=== PATIENT | female | born 1985 | race Caucasian/White ===

== ENCOUNTER 2017-01-29 13:22 | Emergency (ER) | payer MEDICARE, MEDICAID ==
[~2017-01-29] VITALS: Ht 157.5 cm; Wt 45.4 kg
--- OUTSIDE RECORDS SUMMARY | 2017-01-29 13:31 | XMS REPORT | Clinical Summary ---
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 Conditions or Problems Problem Name Problem Code Onset Date Status Entry Date Provider Comment Standard Description Annotate Dental pain 525.9 Active Rojas Turner MD Unspecified disorder of the teeth and supporting structures Cigarette smoker 305.1 Active Jakub Ramirez MD Tobacco use disorder ADHD 314.01 Active Jakub Ramirez MD Attention deficit disorder of childhood with hyperactivity Insect bite 919.4 Resolved Jakub Ramirez MD Insect bite, nonvenomous, of other, multiple, and unspecified sites, without mention of infection Bipolar disorder 296.80 Active Jakub Ramirez MD Bipolar disorder, unspecified Other obsessive-compulsive disorder Active Jakub Ramirez MD Hemorrhoids, external 455.3 Active Jakub Ramirez MD External hemorrhoids without mention of complication Seizure disorder 780.39 Active Jakub Ramirez MD Other convulsions Dyspnea 786.09 Active Jakub Ramirez MD Other dyspnea and respiratory abnormality Chest wall pain 786.52 Active Jakub Ramirez MD Painful respiration Upper respiratory infection 465.9 Active Jakub Ramirez MD Acute upper respiratory infections of unspecified site Insect bite ICD-919.4 Inactive Jakub Ramirez MD Medication List Medication Instructions Start Date Stop Date Generic Name NDC Status Provider Patient Instruction AIRBORNE ORAL CHEW 1 a day MULTIPLE VITAMINS- MINERALS 24686031728 No Longer Active Jakub Ramirez MD Active LORATADINE 10 MG TABS 1 daily as needed for allergies LORATADINE 92637614279 No Longer Active Jakub Ramirez MD Active BENADRYL ITCH STOPPING 2 % EXT GEL apply four times a day as needed for itching DIPHENHYDRAMINE HCL 72104928591 No Longer Active Jakub Ramirez MD Active ANUSOL-HC 2.5 % RECTAL CREA apply twice a day to hemorrhoid as needed HYDROCORTISONE 71848332831 No Longer Active Jakub Ramirez MD Active VENTOLIN HFA 108 (90 BASE) MCG/ACT AERS 2 puffs four times a day as needed for cough or wheezing ALBUTEROL SULFATE 04339449569 Active Jakub Ramirez MD Active HYDROXYZINE HCL 10 MG ORAL TABS 1 to 2 three times a day as needed for itching HYDROXYZINE HCL 79704871499 No Longer Active Leah Bassett LPN Active CLARITIN 10 MG TAB 1 tablet by mouth daily as needed for allergies LORATADINE 44162833736 Active Leah Bassett LPN Active STRATTERA 10 MG CAPS 1 daily ATOMOXETINE HCL 89568229458 No Longer Active Jakub Ramirez MD Active IBUPROFEN 800 MG TABS 1 three times a day as needed for headache IBUPROFEN 11222092817 Active Jakub Ramirez MD Active HYDROCODONE-ACETAMINOPHEN 5-325 MG TABS 1 tab by mouth every 8 hours as needed for pain HYDROCODONE-ACETAMINOPHEN 73590535176 No Longer Active Jakub Ramirez MD Active AQUAPHILIC EXT OINT once daily as needed EMOLLIENT 53403873880 Active Jakub Ramirez MD Active ZADITOR 0.025 % OPHTH SOLN once or twice daily as needed KETOTIFEN FUMARATE 98488967679 Active Jakub Ramirez MD Active VYVANSE 20 MG CAPS twice daily LISDEXAMFETAMINE DIMESYLATE 44253781759 Active Jakub Ramirez MD Active XANAX 0.25 MG TABS take one as needed twice daily ALPRAZOLAM 91342515951 Active Jakub Ramirez MD Active ABILIFY 2 MG ORAL TABS once daily ARIPIPRAZOLE 30557823019 Active Jakub Ramirez MD Active AMOXICILLIN 875 MG TABS 1 tab by mouth twice daily AMOXICILLIN 05187797894 No Longer Active Rojas Turner MD Active HYDROCODONE-ACETAMINOPHEN 5-325 MG TABS 1 tab by mouth every 8 hours as needed for pain HYDROCODONE-ACETAMINOPHEN 5-325 MG TABS 499137 HYDROCODONE-ACETAMINOPHEN Inactive STRATTERA 10 MG CAPS 1 daily STRATTERA 10 MG CAPS 798439 ATOMOXETINE HCL Inactive HYDROXYZINE HCL 10 MG ORAL TABS 1 to 2 three times a day as needed for itching HYDROXYZINE HCL 10 MG ORAL TABS 088474 HYDROXYZINE HCL Inactive ANUSOL-HC 2.5 % RECTAL CREA apply twice a day to hemorrhoid as needed ANUSOL-HC 2.5 % RECTAL CREA 403525 HYDROCORTISONE Inactive BENADRYL ITCH STOPPING 2 % EXT GEL apply four times a day as needed for itching BENADRYL ITCH STOPPING 2 % EXT GEL DIPHENHYDRAMINE HCL Inactive LORATADINE 10 MG TABS 1 daily as needed for allergies LORATADINE 10 MG TABS 351449 LORATADINE Inactive AIRBORNE ORAL CHEW 1 a day AIRBORNE ORAL CHEW MULTIPLE VITAMINS-MINERALS Inactive AMOXICILLIN 875 MG TABS 1 tab by mouth twice daily AMOXICILLIN 875 MG TABS 255566 AMOXICILLIN Inactive Vital Signs Date Name Value Unit Range Description blood pressure, diastolic 67 mm[Hg] BP hoff blood pressure, systolic 109 mm[Hg] BP sys pulse rate E&M 89 /min Heart rate temperature E&M 99.3 [degF] Body temperature weight E&M 103.5 [lb_av] Weight Measured blood pressure, diastolic 79 mm[Hg] BP hoff blood pressure, systolic 118 mm[Hg] BP sys pulse rate E&M 80 /min Heart rate temperature E&M 98.8 [degF] Body temperature weight E&M 103.5 [lb_av] Weight Measured blood pressure, diastolic 69 mm[Hg] BP hoff blood pressure, systolic 94 mm[Hg] BP sys height E&M 61 [in_us] Bdy height pulse rate E&M 94 /min Heart rate temperature E&M 98.4 [degF] Body temperature weight E&M 100 [lb_av] Weight Measured blood pressure, diastolic 72 mm[Hg] BP hoff blood pressure, systolic 114 mm[Hg] BP sys pulse rate E&M 114 /min Heart rate temperature E&M 97.6 [degF] Body temperature weight E&M 102 [lb_av] Weight Measured Encounters Code Encounter Date Provider Facility CPT-27549 Level 3 Est. Patient 12:51:13 CDT Jakub Ramirez MD [facility] CPT-77110 Level 3 Est. Patient 14:46:53 CDT Jakub Ramirez MD [facility] CPT-78071 Level 3 Est. Patient 12:51:53 CDT Jakub Ramirez MD [facility] CPT-29085 Level 3 Est. Patient 16:54:18 CDT Rojas Turner MD [facility] -[facility]
--- OUTSIDE RECORDS SUMMARY | 2017-01-29 13:31 | XMS REPORT | Clinical Summary ---
Author Author Admin, Savita Organization [facility] Address Unknown Phone Unavailable Allergies, Adverse Reactions, Alerts Allergy Name Reaction Description Start Date Severity Status Provider No Known Allergies Leahedmundo Bassett [employer]PER Conditions or Problems Problem Name Problem Code [...] CHEW 1 a day MULTIPLE VITAMINS- MINERALS 30976550031 No Longer Active Jakub Ramirez MD Active LORATADINE 10 MG TABS 1 daily as needed for allergies LORATADINE 46932315320 No Longer Active Jakub Ramirez MD Active BENADRYL ITCH STOPPING 2 % EXT GEL apply four times a day as needed for itching DIPHENHYDRAMINE HCL 62080025639 No Longer Active Jakub Ramirez MD Active ANUSOL-HC 2.5 % RECTAL CREA apply twice a day to hemorrhoid as needed HYDROCORTISONE 20458103640 No Longer Active Jakub Ramirez MD Active VENTOLIN HFA 108 (90 BASE) MCG/ACT AERS 2 puffs four times a day as needed for cough or wheezing ALBUTEROL SULFATE 88526116909 Active Jakub Ramirez MD Active HYDROXYZINE HCL 10 MG ORAL TABS 1 to 2 three times a day as needed for itching HYDROXYZINE HCL 59455472074 No Longer Active Leah Bassett LPN Active CLARITIN 10 MG TAB 1 tablet by mouth daily as needed for allergies LORATADINE 63320618990 Active Leah Bassett LPN Active STRATTERA 10 MG CAPS 1 daily ATOMOXETINE HCL 26854612927 No Longer Active Jakub Ramirez MD Active IBUPROFEN 800 MG TABS 1 three times a day as needed for headache IBUPROFEN 27605950244 Active Jakub Ramirez MD Active HYDROCODONE-ACETAMINOPHEN 5-325 MG TABS 1 tab by mouth every 8 hours as needed for pain HYDROCODONE-ACETAMINOPHEN 12467604318 No Longer Active Jakub Ramirez MD Active AQUAPHILIC EXT OINT once daily as needed EMOLLIENT 57032489288 Active Jakub Ramirez MD Active ZADITOR 0.025 % OPHTH SOLN once or twice daily as needed KETOTIFEN FUMARATE 80825846277 Active Jakub Ramirez MD Active VYVANSE 20 MG CAPS twice daily LISDEXAMFETAMINE DIMESYLATE 26595827987 Active Jakub Ramirez MD Active XANAX 0.25 MG TABS take one as needed twice daily ALPRAZOLAM 97692637517 Active Jakub Ramirez MD Active ABILIFY 2 MG ORAL TABS once daily ARIPIPRAZOLE 86574082048 Active Jakub Ramirez MD Active AMOXICILLIN 875 MG TABS 1 tab by mouth twice daily AMOXICILLIN 76734566600 No Longer Active Rojas Turner MD Active HYDROCODONE-ACETAMINOPHEN 5-325 MG TABS 1 tab by mouth every 8 hours as needed for pain HYDROCODONE-ACETAMINOPHEN 5-325 MG TABS 840902 HYDROCODONE-ACETAMINOPHEN Inactive STRATTERA 10 MG CAPS 1 daily STRATTERA 10 MG CAPS 174810 ATOMOXETINE HCL Inactive HYDROXYZINE HCL 10 MG ORAL TABS 1 to 2 three times a day as needed for itching HYDROXYZINE HCL 10 MG ORAL TABS 878695 HYDROXYZINE HCL Inactive ANUSOL-HC 2.5 % RECTAL CREA apply twice a day to hemorrhoid as needed ANUSOL-HC 2.5 % RECTAL CREA 280785 HYDROCORTISONE Inactive BENADRYL ITCH STOPPING 2 % EXT GEL apply four times a day as needed for itching BENADRYL ITCH STOPPING 2 % EXT GEL DIPHENHYDRAMINE HCL Inactive LORATADINE 10 MG TABS 1 daily as needed for allergies LORATADINE 10 MG TABS 445850 LORATADINE Inactive AIRBORNE ORAL CHEW 1 a day AIRBORNE ORAL CHEW MULTIPLE VITAMINS-MINERALS Inactive AMOXICILLIN 875 MG TABS 1 tab by mouth twice daily AMOXICILLIN 875 MG TABS 741467 AMOXICILLIN Inactive Vital Signs Date Name Value [...] temperature weight E&M 102 [lb_av] Weight Measured Diagnostic Results Date Name Value Unit Range Description Lab Report: RapidStrep Rflx/Cx, MARIAM INFLUENZA A/B - Lab Microbial identification kit, rapid strep method Negative Negative Lab Report: RapidStrep Rflx/Cx, MARIAM INFLUENZA A/B - Toxicology rapid flu test Negative Negative;Positive Encounters Code Encounter Date Provider Facility CPT-75884 Level 3 Est. Patient 12:51:13 CDT Jakub Ramirez MD [facility] CPT-72475 Level 3 Est. Patient 14:46:53 CDT Jakub Ramirez MD [facility] CPT-00642 Level 3 Est. Patient 12:51:53 CDT Jakub Ramirez MD [facility] CPT-94628 Level 3 Est. Patient 16:54:18 CDT Rojas Turner MD [facility] -[facility]
--- OUTSIDE RECORDS SUMMARY | 2017-01-29 13:31 | XMS REPORT | Clinical Summary ---
Author Author Admin, STANISLAV Organization [facility] Address Unknown Phone Unavailable Allergies, Adverse Reactions, Alerts Allergy Name Reaction Description Start Date Severity Status Provider No Known Allergies Deidra Prieto SANCHEZ Conditions or Problems Problem Name Problem Code [...] 786.52 Active Jakub Ramirez MD Painful respiration Insect bite ICD-919.4 Inactive Jakub Ramirez MD Medication List Medication Instructions Start Date Stop Date Generic Name NDC Status Provider Patient Instruction BENADRYL ITCH STOPPING 2 % EXT GEL apply four times a day as needed for itching DIPHENHYDRAMINE HCL 65665599835 Active Jakub Ramirez MD Active LORATADINE 10 MG TABS 1 daily as needed for allergies LORATADINE 25865186715 Active Jakub Ramirez MD Active AIRBORNE ORAL CHEW 1 a day MULTIPLE VITAMINS-MINERALS 08764954231 Active Jakub Ramirez MD Active VENTOLIN HFA 108 (90 BASE) MCG/ACT AERS 2 puffs four times a day as needed for cough or wheezing ALBUTEROL SULFATE 84132302744 Active Jakub Ramirez MD Active HYDROXYZINE HCL 10 MG ORAL TABS 1 to 2 three times a day as needed for itching HYDROXYZINE HCL 78052236898 No Longer Active Leah Bassett LPN Active CLARITIN 10 MG TAB 1 tablet by mouth daily as needed for allergies LORATADINE 03194820322 Active Leah Bassett LPN Active STRATTERA 10 MG CAPS 1 daily ATOMOXETINE HCL 05554029631 No Longer Active Jakub Ramirez MD Active ANUSOL-HC 2.5 % RECTAL CREA apply twice a day to hemorrhoid as needed HYDROCORTISONE 30650731761 Active Jakub Ramirez MD Active IBUPROFEN 800 MG TABS 1 three times a day as needed for headache IBUPROFEN 76488115569 Active Jakub Ramirez MD Active HYDROCODONE-ACETAMINOPHEN 5-325 MG TABS 1 tab by mouth every 8 hours as needed for pain HYDROCODONE-ACETAMINOPHEN 66500392859 No Longer Active Jakub Ramirez MD Active AQUAPHILIC EXT OINT once daily as needed EMOLLIENT 72624042205 Active Jakub Ramirez MD Active ZADITOR 0.025 % OPHTH SOLN once or twice daily as needed KETOTIFEN FUMARATE 11246018311 Active Jakub Ramirze MD Active VYVANSE 20 MG CAPS twice daily LISDEXAMFETAMINE DIMESYLATE 27550381607 Active Jakub Ramirez MD Active XANAX 0.25 MG TABS take one as needed twice daily ALPRAZOLAM 31094569602 Active Jakub Ramirez MD Active ABILIFY 2 MG ORAL TABS once daily ARIPIPRAZOLE 77248365753 Active Jakub Ramirez MD Active AMOXICILLIN 875 MG TABS 1 tab by mouth twice daily AMOXICILLIN 71570859158 No Longer Active Rojas Turner MD Active HYDROCODONE-ACETAMINOPHEN 5-325 MG TABS 1 tab by mouth every 8 hours as needed for pain HYDROCODONE-ACETAMINOPHEN 5-325 MG TABS 320937 HYDROCODONE-ACETAMINOPHEN Inactive STRATTERA 10 MG CAPS 1 daily STRATTERA 10 MG CAPS 277428 ATOMOXETINE HCL Inactive HYDROXYZINE HCL 10 MG ORAL TABS 1 to 2 three times a day as needed for itching HYDROXYZINE HCL 10 MG ORAL TABS 062308 HYDROXYZINE HCL Inactive AMOXICILLIN 875 MG TABS 1 tab by mouth twice daily AMOXICILLIN 875 MG TABS 976488 AMOXICILLIN Inactive Vital Signs Date Name Value Unit Range Description blood pressure, diastolic 79 mm[Hg] BP hoff [...] Measured Encounters Code Encounter Date Provider Facility CPT-97523 Level 3 Est. Patient 14:46:53 CDT Jakub Ramirez MD [facility] CPT-15919 Level 3 Est. Patient 12:51:53 CDT Jakub Ramirez MD [facility] CPT-96381 Level 3 Est. Patient 16:54:18 CDT Rojas Turner MD [facility] -[facility]
--- OUTSIDE RECORDS SUMMARY | 2017-01-29 13:31 | XMS REPORT | Clinical Summary ---
Author Author Admin, E Organization [facility] Address Unknown Phone Unavailable Allergies, Adverse Reactions, Alerts Allergy Name Reaction Description Start Date Severity Status Provider No Known Allergies Leah Bassett DANIEL Conditions or Problems Problem Name Problem Code [...] Ramirez MD Other dyspnea and respiratory abnormality Insect bite ICD-919.4 Inactive Jakub Ramirez MD Medication List Medication Instructions Start Date Stop Date Generic Name NDC Status Provider Patient Instruction VENTOLIN HFA 108 (90 BASE) MCG/ACT AERS 2 puffs four times a day as needed for cough or wheezing ALBUTEROL SULFATE 05777870715 Active Jakub Ramirez MD Active HYDROXYZINE HCL 10 MG ORAL TABS 1 to 2 three times a day as needed for itching HYDROXYZINE HCL 97951182577 No Longer Active Leah Bassett LPN Active CLARITIN 10 MG TAB 1 tablet by mouth daily as needed for allergies LORATADINE 38590012589 Active Leah Bassett LPN Active STRATTERA 10 MG CAPS 1 daily ATOMOXETINE HCL 08752515655 No Longer Active Jakub Ramirez MD Active ANUSOL-HC 2.5 % RECTAL CREA apply twice a day to hemorrhoid as needed HYDROCORTISONE 28234402222 Active Jakub Ramirez MD Active IBUPROFEN 800 MG TABS 1 three times a day as needed for headache IBUPROFEN 09902399242 Active Jakub Ramirez MD Active HYDROCODONE-ACETAMINOPHEN 5-325 MG TABS 1 tab by mouth every 8 hours as needed for pain HYDROCODONE-ACETAMINOPHEN 51439610140 No Longer Active Jakub Ramirez MD Active AQUAPHILIC EXT OINT once daily as needed EMOLLIENT 70317662620 Active Jakub Ramirez MD Active ZADITOR 0.025 % OPHTH SOLN once or twice daily as needed KETOTIFEN FUMARATE 83484468913 Active Jakub Ramirez MD Active VYVANSE 20 MG CAPS twice daily LISDEXAMFETAMINE DIMESYLATE 78478385552 Active Jakub Ramirez MD Active XANAX 0.25 MG TABS take one as needed twice daily ALPRAZOLAM 94602348410 Active Jakub Rmairez MD Active ABILIFY 2 MG ORAL TABS once daily ARIPIPRAZOLE 04937146986 Active Jakub Ramirez MD Active AMOXICILLIN 875 MG TABS 1 tab by mouth twice daily AMOXICILLIN 05134794746 No Longer Active Rojas Turner MD Active HYDROCODONE-ACETAMINOPHEN 5-325 MG TABS 1 tab by mouth every 8 hours as needed for pain HYDROCODONE-ACETAMINOPHEN 5-325 MG TABS 105344 HYDROCODONE-ACETAMINOPHEN Inactive STRATTERA 10 MG CAPS 1 daily STRATTERA 10 MG CAPS ATOMOXETINE HCL Inactive HYDROXYZINE HCL 10 MG ORAL TABS 1 to 2 three times a day as needed for itching HYDROXYZINE HCL 10 MG ORAL TABS 657346 HYDROXYZINE HCL Inactive AMOXICILLIN 875 MG TABS 1 tab by mouth twice daily AMOXICILLIN 875 MG TABS 324630 AMOXICILLIN Inactive Vital Signs Date Name Value Unit Range Description blood pressure, diastolic - 8462-4 69 mm[Hg] BP hoff blood pressure, systolic - 8480-6 94 mm[Hg] BP sys height E&M - 8302-2 61 [in_us] Bdy height pulse rate E&M - 8867-4 94 /min Heart rate temperature E&M 98.4 [degF] Body temperature weight E&M - 3141-9 100 [lb_av] Weight Measured blood pressure, diastolic - 8462-4 72 mm[Hg] BP hoff blood pressure, systolic - 8480-6 114 mm[Hg] BP sys pulse rate E&M - 8867-4 114 /min Heart rate temperature E&M 97.6 [degF] Body temperature weight E&M - 3141-9 102 [lb_av] Weight Measured Encounters Code Encounter Date Provider Facility CPT-68438 Level 3 Est. Patient 12:51:53 CDT Jakub Ramirez MD [facility] CPT-17419 Level 3 Est. Patient 16:54:18 CDT Rojas Turner MD [facility]
--- OUTSIDE RECORDS SUMMARY | 2017-01-29 13:32 | XMS REPORT | Clinical Summary ---
Author Author Admin, STANISLAV Organization 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 Problem Name Problem Code [...] CHEW 1 a day MULTIPLE VITAMINS- MINERALS 30297267564 No Longer Active Jakub Ramirez MD Active LORATADINE 10 MG TABS 1 daily as needed for allergies LORATADINE 18811168559 No Longer Active Jakub Ramirez MD Active BENADRYL ITCH STOPPING 2 % EXT GEL apply four times a day as needed for itching DIPHENHYDRAMINE HCL 28254312787 No Longer Active Jakub Ramierz MD Active ANUSOL-HC 2.5 % RECTAL CREA apply twice a day to hemorrhoid as needed HYDROCORTISONE 42359480926 No Longer Active Jakub Ramirez MD Active VENTOLIN HFA 108 (90 BASE) MCG/ACT AERS 2 puffs four times a day as needed for cough or wheezing ALBUTEROL SULFATE 63824639982 Active Jakub Ramirez MD Active HYDROXYZINE HCL 10 MG ORAL TABS 1 to 2 three times a day as needed for itching HYDROXYZINE HCL 63279487211 No Longer Active Leah Bassett LPN Active CLARITIN 10 MG TAB 1 tablet by mouth daily as needed for allergies LORATADINE 04067427361 Active Leah Bassett LPN Active STRATTERA 10 MG CAPS 1 daily ATOMOXETINE HCL 95064956020 No Longer Active Jakub Ramirez MD Active IBUPROFEN 800 MG TABS 1 three times a day as needed for headache IBUPROFEN 46514438420 Active Jakub Ramirez MD Active HYDROCODONE-ACETAMINOPHEN 5-325 MG TABS 1 tab by mouth every 8 hours as needed for pain HYDROCODONE-ACETAMINOPHEN 32886609963 No Longer Active Jakub Ramirez MD Active AQUAPHILIC EXT OINT once daily as needed EMOLLIENT 55496245905 Active Jakub Ramirez MD Active ZADITOR 0.025 % OPHTH SOLN once or twice daily as needed KETOTIFEN FUMARATE 16844835379 Active Jakub Ramirez MD Active VYVANSE 20 MG CAPS twice daily LISDEXAMFETAMINE DIMESYLATE 17639866848 Active Jakub Ramirez MD Active XANAX 0.25 MG TABS take one as needed twice daily ALPRAZOLAM 77310393058 Active Jakub Ramirez MD Active ABILIFY 2 MG ORAL TABS once daily ARIPIPRAZOLE 65920152614 Active Jakub Ramirez MD Active AMOXICILLIN 875 MG TABS 1 tab by mouth twice daily AMOXICILLIN 96759546033 No Longer Active Rojas Turner MD Active HYDROCODONE-ACETAMINOPHEN 5-325 MG TABS 1 tab by mouth every 8 hours as needed for pain HYDROCODONE-ACETAMINOPHEN 5-325 MG TABS 201780 HYDROCODONE-ACETAMINOPHEN Inactive STRATTERA 10 MG CAPS 1 daily STRATTERA 10 MG CAPS 575665 ATOMOXETINE HCL Inactive HYDROXYZINE HCL 10 MG ORAL TABS 1 to 2 three times a day as needed for itching HYDROXYZINE HCL 10 MG ORAL TABS 842693 HYDROXYZINE HCL Inactive ANUSOL-HC 2.5 % RECTAL CREA apply twice a day to hemorrhoid as needed ANUSOL-HC 2.5 % RECTAL CREA 581867 HYDROCORTISONE Inactive BENADRYL ITCH STOPPING 2 % EXT GEL apply four times a day as needed for itching BENADRYL ITCH STOPPING 2 % EXT GEL DIPHENHYDRAMINE HCL Inactive LORATADINE 10 MG TABS 1 daily as needed for allergies LORATADINE 10 MG TABS 282178 LORATADINE Inactive AIRBORNE ORAL CHEW 1 a day AIRBORNE ORAL CHEW MULTIPLE VITAMINS-MINERALS Inactive AMOXICILLIN 875 MG TABS 1 tab by mouth twice daily AMOXICILLIN 875 MG TABS 838422 AMOXICILLIN Inactive Vital Signs Date Name Value [...] Negative;Positive Encounters Code Encounter Date Provider Facility CPT-41379 Level 3 Est. Patient 12:51:13 CDT Jakub Ramirez MD [facility] CPT-66237 Level 3 Est. Patient 14:46:53 CDT Jakub Ramirez MD [facility] CPT-74266 Level 3 Est. Patient 12:51:53 CDT Jakub Ramirez MD [facility] CPT-17030 Level 3 Est. Patient 16:54:18 CDT Rojas Turner MD [facility] -[facility]
--- OUTSIDE RECORDS SUMMARY | 2017-01-29 13:32 | XMS REPORT | Clinical Summary ---
Author Author Admin, E Organization [facility] Address Unknown Phone Unavailable Allergies, Adverse Reactions, Alerts Allergy Name Reaction Description Start Date Severity Status Provider No Known Allergies Leahedmundo Bassett DANIEL Conditions or Problems Problem Name Problem Code Onset Date Status Entry Date Provider Comment Standard Description Annotate Dental pain 525.9 Active Rojas Turner MD Unspecified disorder of the teeth and supporting structures Cigarette smoker 305.1 Active Jakub Ramirez MD Tobacco use disorder ADHD 314.01 Active Jakub Ramirez MD Attention deficit disorder of childhood with hyperactivity Insect bite 919.4 Active Jakub Ramirez MD Insect bite, nonvenomous, of other, multiple, and unspecified sites, without mention of infection Bipolar disorder 296.80 Active Jakub Ramirez MD Bipolar disorder, unspecified Other obsessive-compulsive disorder Active Jakub Ramirez MD Hemorrhoids, external 455.3 Active Jakub Ramirez MD External hemorrhoids without mention of complication Seizure disorder 780.39 Active Jakub Ramirez MD Other convulsions Medication List Medication Instructions Start Date Stop Date Generic Name NDC Status Provider Patient Instruction STRATTERA 10 MG CAPS 1 daily ATOMOXETINE HCL 04852223303 No Longer Active Jakub Ramirez MD Active HYDROXYZINE HCL 10 MG ORAL TABS 1 to 2 three times a day as needed for itching HYDROXYZINE HCL 42641886389 Active Jakub Ramirez MD Active ANUSOL-HC 2.5 % RECTAL CREA apply twice a day to hemorrhoid as needed HYDROCORTISONE 44587661695 Active Jakub Ramirez MD Active IBUPROFEN 800 MG TABS 1 three times a day as needed for headache IBUPROFEN 24773435143 Active Jakub Ramirez MD Active HYDROCODONE-ACETAMINOPHEN 5-325 MG TABS 1 tab by mouth every 8 hours as needed for pain HYDROCODONE-ACETAMINOPHEN 97735068147 No Longer Active Jakub Ramirez MD Active AQUAPHILIC EXT OINT once daily as needed EMOLLIENT 23123043482 Active Jakub Ramirez MD Active ZADITOR 0.025 % OPHTH SOLN once or twice daily as needed KETOTIFEN FUMARATE 05076982754 Active Jakub Ramirez MD Active VYVANSE 20 MG CAPS twice daily LISDEXAMFETAMINE DIMESYLATE 13943464372 Active Jakub Ramirez MD Active XANAX 0.25 MG TABS take one as needed twice daily ALPRAZOLAM 07029842577 Active Jakub Ramirez MD Active ABILIFY 2 MG ORAL TABS once daily ARIPIPRAZOLE 88400237478 Active Jakub Ramirez MD Active AMOXICILLIN 875 MG TABS 1 tab by mouth twice daily AMOXICILLIN 35848925321 No Longer Active Rojas Turner MD Active HYDROCODONE-ACETAMINOPHEN 5-325 MG TABS 1 tab by mouth every 8 hours as needed for pain HYDROCODONE-ACETAMINOPHEN 5-325 MG TABS 391664 HYDROCODONE-ACETAMINOPHEN Inactive STRATTERA 10 MG CAPS 1 daily STRATTERA 10 MG CAPS ATOMOXETINE HCL Inactive AMOXICILLIN 875 MG TABS 1 tab by mouth twice daily AMOXICILLIN 875 MG TABS 267924 AMOXICILLIN Inactive Vital Signs Date Name Value Unit Range Description blood pressure, diastolic - 8462-4 72 mm[Hg] BP hoff blood pressure, systolic - 8480-6 114 mm[Hg] BP sys pulse rate E&M - 8867-4 114 /min Heart rate temperature E&M 97.6 [degF] Body temperature weight E&M - 3141-9 102 [lb_av] Weight Measured Encounters Code Encounter Date Provider Facility CPT-76786 Level 3 Est. Patient 16:54:18 CDT Rojas Turner MD [facility]
--- OUTSIDE RECORDS SUMMARY | 2017-01-29 13:32 | XMS REPORT | Clinical Summary ---
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 Problem Name Problem Code [...] Generic Name NDC Status Provider Patient Instruction ZITHROMAX Z-TEAGAN 250 MG TABS 2 today and then 1 daily for 4 days AZITHROMYCIN 01509088733 Active Deidra Moreau DANIEL Active AIRBORNE ORAL CHEW 1 a day MULTIPLE VITAMINS- MINERALS 10360692786 No Longer Active Jakub Ramirez MD Active LORATADINE 10 MG TABS 1 daily as needed for allergies LORATADINE 66422641305 No Longer Active Jakub Ramirez MD Active BENADRYL ITCH STOPPING 2 % EXT GEL apply four times a day as needed for itching DIPHENHYDRAMINE HCL 72340919391 No Longer Active Jakub Ramirez MD Active ANUSOL-HC 2.5 % RECTAL CREA apply twice a day to hemorrhoid as needed HYDROCORTISONE 86683369783 No Longer Active Jakub Ramirez MD Active VENTOLIN HFA 108 (90 BASE) MCG/ACT AERS 2 puffs four times a day as needed for cough or wheezing ALBUTEROL SULFATE 80531989884 Active Jakub Ramirez MD Active HYDROXYZINE HCL 10 MG ORAL TABS 1 to 2 three times a day as needed for itching HYDROXYZINE HCL 86571400329 No Longer Active Leah Bassett LPN Active CLARITIN 10 MG TAB 1 tablet by mouth daily as needed for allergies LORATADINE 48285995860 Active Leah Bassett LPN Active STRATTERA 10 MG CAPS 1 daily ATOMOXETINE HCL 01127184899 No Longer Active Jakub Ramirez MD Active IBUPROFEN 800 MG TABS 1 three times a day as needed for headache IBUPROFEN 96797812911 Active Jakub Ramirez MD Active HYDROCODONE-ACETAMINOPHEN 5-325 MG TABS 1 tab by mouth every 8 hours as needed for pain HYDROCODONE-ACETAMINOPHEN 04417990972 No Longer Active Jakub Ramirez MD Active AQUAPHILIC EXT OINT once daily as needed EMOLLIENT 08018184654 Active Jakub Ramirez MD Active ZADITOR 0.025 % OPHTH SOLN once or twice daily as needed KETOTIFEN FUMARATE 84553236482 Active Jakub Ramirez MD Active VYVANSE 20 MG CAPS twice daily LISDEXAMFETAMINE DIMESYLATE 98299458524 Active Jakub Ramirez MD Active XANAX 0.25 MG TABS take one as needed twice daily ALPRAZOLAM 83334874304 Active Jakub Ramirez MD Active ABILIFY 2 MG ORAL TABS once daily ARIPIPRAZOLE 22622528254 Active Jakub Ramirez MD Active AMOXICILLIN 875 MG TABS 1 tab by mouth twice daily AMOXICILLIN 82224895561 No Longer Active Rojas Turner MD Active HYDROCODONE-ACETAMINOPHEN 5-325 MG TABS 1 tab by mouth every 8 hours as needed for pain HYDROCODONE-ACETAMINOPHEN 5-325 MG TABS 791677 HYDROCODONE-ACETAMINOPHEN Inactive STRATTERA 10 MG CAPS 1 daily STRATTERA 10 MG CAPS 068038 ATOMOXETINE HCL Inactive HYDROXYZINE HCL 10 MG ORAL TABS 1 to 2 three times a day as needed for itching HYDROXYZINE HCL 10 MG ORAL TABS 813103 HYDROXYZINE HCL Inactive ANUSOL-HC 2.5 % RECTAL CREA apply twice a day to hemorrhoid as needed ANUSOL-HC 2.5 % RECTAL CREA 644740 HYDROCORTISONE Inactive BENADRYL ITCH STOPPING 2 % EXT GEL apply four times a day as needed for itching BENADRYL ITCH STOPPING 2 % EXT GEL DIPHENHYDRAMINE HCL Inactive LORATADINE 10 MG TABS 1 daily as needed for allergies LORATADINE 10 MG TABS 151347 LORATADINE Inactive AIRBORNE ORAL CHEW 1 a day AIRBORNE ORAL CHEW MULTIPLE VITAMINS-MINERALS Inactive AMOXICILLIN 875 MG TABS 1 tab by mouth twice daily AMOXICILLIN 875 MG TABS 025959 AMOXICILLIN Inactive Vital Signs Date Name Value [...] Negative;Positive Encounters Code Encounter Date Provider Facility CPT-24123 Level 3 Est. Patient 12:51:13 CDT Jakub Ramirez MD [facility] CPT-98381 Level 3 Est. Patient 14:46:53 CDT Jakub Ramirez MD [facility] CPT-98503 Level 3 Est. Patient 12:51:53 CDT Jakub Ramirez MD [facility] CPT-58365 Level 3 Est. Patient 16:54:18 CDT Rojas Turner MD [facility] -[facility]
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
--- OUTSIDE RECORDS SUMMARY | 2017-01-29 13:32 | XMS REPORT | Clinical Summary ---
Author Author Admin, [facility] Organization [facility] Address Unknown Phone Unavailable Allergies, Adverse Reactions, Alerts Allergy Name Reaction Description Start Date Severity Status Provider Allergies Unknown Conditions or Problems Problem Name Problem Code Onset Date Status Entry Date Provider Comment Standard Description Annotate Dental pain 525.9 Active Rojas Turner MD Unspecified disorder of the teeth and supporting structures Medication List Medication Instructions Start Date Stop Date Generic Name ND Status Provider Patient Instruction AMOXICILLIN 875 MG TABS 1 tab by mouth twice daily AMOXICILLIN 50683517961 No Longer Active Rojas Turner MD Active HYDROCODONE-ACETAMINOPHEN 5-325 MG TABS 1 tab by mouth every 8 hours as needed for pain HYDROCODONE-ACETAMINOPHEN 02327945868 Active Rojas Turner MD Active STRATTERA 10 MG CAPS 1 daily ATOMOXETINE HCL 25021668598 Active Rojas Turner MD Active AMOXICILLIN 875 MG TABS 1 tab by mouth twice daily AMOXICILLIN 875 MG TABS 260285 AMOXICILLIN Inactive Encounters Code Encounter Date Provider Facility CPT-35629 Level 3 Est. Patient 16:54:18 CDT Rojas Turner MD [facility]
--- OUTSIDE RECORDS SUMMARY | 2017-01-29 13:32 | XMS REPORT | Clinical Summary ---
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 Problem Name Problem Code [...] CHEW 1 a day MULTIPLE VITAMINS- MINERALS 19504240811 No Longer Active Jakub Ramirez MD Active LORATADINE 10 MG TABS 1 daily as needed for allergies LORATADINE 17328258442 No Longer Active Jakub Ramirez MD Active BENADRYL ITCH STOPPING 2 % EXT GEL apply four times a day as needed for itching DIPHENHYDRAMINE HCL 72054115297 No Longer Active Jakub Ramirez MD Active ANUSOL-HC 2.5 % RECTAL CREA apply twice a day to hemorrhoid as needed HYDROCORTISONE 00060985532 No Longer Active Jakub Ramirez MD Active VENTOLIN HFA 108 (90 BASE) MCG/ACT AERS 2 puffs four times a day as needed for cough or wheezing ALBUTEROL SULFATE 96277487616 Active Jakub Ramirez MD Active HYDROXYZINE HCL 10 MG ORAL TABS 1 to 2 three times a day as needed for itching HYDROXYZINE HCL 28743944820 No Longer Active Leah Bassett LPN Active CLARITIN 10 MG TAB 1 tablet by mouth daily as needed for allergies LORATADINE 31284542208 Active Leah Bassett LPN Active STRATTERA 10 MG CAPS 1 daily ATOMOXETINE HCL 98892037330 No Longer Active Jakub Ramirez MD Active IBUPROFEN 800 MG TABS 1 three times a day as needed for headache IBUPROFEN 61462810839 Active Jakub Ramirez MD Active HYDROCODONE-ACETAMINOPHEN 5-325 MG TABS 1 tab by mouth every 8 hours as needed for pain HYDROCODONE-ACETAMINOPHEN 22525583812 No Longer Active Jakub Ramirez MD Active AQUAPHILIC EXT OINT once daily as needed EMOLLIENT 38674484086 Active Jakub Ramirez MD Active ZADITOR 0.025 % OPHTH SOLN once or twice daily as needed KETOTIFEN FUMARATE 05857791732 Active Jakub Ramirez MD Active VYVANSE 20 MG CAPS twice daily LISDEXAMFETAMINE DIMESYLATE 28314652991 Active Jakub Ramirez MD Active XANAX 0.25 MG TABS take one as needed twice daily ALPRAZOLAM 10521194295 Active Jakub Ramirez MD Active ABILIFY 2 MG ORAL TABS once daily ARIPIPRAZOLE 94471736921 Active Jakub Ramirez MD Active AMOXICILLIN 875 MG TABS 1 tab by mouth twice daily AMOXICILLIN 52164060094 No Longer Active Rojas Turner MD Active HYDROCODONE-ACETAMINOPHEN 5-325 MG TABS 1 tab by mouth every 8 hours as needed for pain HYDROCODONE-ACETAMINOPHEN 5-325 MG TABS 815732 HYDROCODONE-ACETAMINOPHEN Inactive STRATTERA 10 MG CAPS 1 daily STRATTERA 10 MG CAPS 146591 ATOMOXETINE HCL Inactive HYDROXYZINE HCL 10 MG ORAL TABS 1 to 2 three times a day as needed for itching HYDROXYZINE HCL 10 MG ORAL TABS 494531 HYDROXYZINE HCL Inactive ANUSOL-HC 2.5 % RECTAL CREA apply twice a day to hemorrhoid as needed ANUSOL-HC 2.5 % RECTAL CREA 286286 HYDROCORTISONE Inactive BENADRYL ITCH STOPPING 2 % EXT GEL apply four times a day as needed for itching BENADRYL ITCH STOPPING 2 % EXT GEL DIPHENHYDRAMINE HCL Inactive LORATADINE 10 MG TABS 1 daily as needed for allergies LORATADINE 10 MG TABS 438485 LORATADINE Inactive AIRBORNE ORAL CHEW 1 a day AIRBORNE ORAL CHEW MULTIPLE VITAMINS-MINERALS Inactive AMOXICILLIN 875 MG TABS 1 tab by mouth twice daily AMOXICILLIN 875 MG TABS 727292 AMOXICILLIN Inactive Vital Signs Date Name Value [...] Measured Encounters Code Encounter Date Provider Facility CPT-80483 Level 3 Est. Patient 12:51:13 CDT Jakub Ramirez MD [facility] CPT-88571 Level 3 Est. Patient 14:46:53 CDT Jakub Ramirez MD [facility] CPT-11397 Level 3 Est. Patient 12:51:53 CDT Jakub Ramirez MD [facility] CPT-76926 Level 3 Est. Patient 16:54:18 CDT Rojas Turner MD [facility] -[facility]
--- OUTSIDE RECORDS SUMMARY | 2017-01-29 13:33 | XMS REPORT | Clinical Summary ---
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 CLARITIN 10 MG TAB 1 tablet by mouth daily as needed for allergies LORATADINE 32155547801 Active 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 STRATTERA 10 MG CAPS 1 daily ATOMOXETINE HCL 19006532119 No Longer Active Jakub Ramirez MD Active ANUSOL-HC 2.5 % RECTAL CREA apply twice a day to hemorrhoid as needed HYDROCORTISONE 94519523150 Active Jakub Ramirez MD Active IBUPROFEN 800 MG TABS 1 three times a day as needed for headache IBUPROFEN 02436270977 Active Jakub Ramirez MD Active HYDROCODONE-ACETAMINOPHEN 5-325 MG TABS 1 tab by mouth every 8 hours as needed for pain HYDROCODONE-ACETAMINOPHEN 59710072591 No Longer Active Jakub Ramirez MD Active AQUAPHILIC EXT OINT once daily as needed EMOLLIENT 83972181565 Active Jakub Ramirez MD Active ZADITOR 0.025 % OPHTH SOLN once or twice daily as needed KETOTIFEN FUMARATE 78515559349 Active Jakub Ramirez MD Active VYVANSE 20 MG CAPS twice daily LISDEXAMFETAMINE DIMESYLATE 67666403683 Active Jakub Ramirez MD Active XANAX 0.25 MG TABS take one as needed twice daily ALPRAZOLAM 71845420867 Active Jakub Ramirez MD Active ABILIFY 2 MG ORAL TABS once daily ARIPIPRAZOLE 89653820808 Active Jakub Ramirez MD Active AMOXICILLIN 875 MG TABS 1 tab by mouth twice daily AMOXICILLIN 99737495417 No Longer Active Rojas Turner MD Active HYDROCODONE-ACETAMINOPHEN 5-325 MG TABS 1 tab by mouth every 8 hours as needed for pain HYDROCODONE-ACETAMINOPHEN 5-325 MG TABS 521974 HYDROCODONE-ACETAMINOPHEN Inactive STRATTERA 10 MG CAPS 1 daily STRATTERA 10 MG CAPS ATOMOXETINE HCL Inactive HYDROXYZINE HCL 10 MG ORAL TABS 1 to 2 three times a day as needed for itching HYDROXYZINE HCL 10 MG ORAL TABS 806705 HYDROXYZINE HCL Inactive AMOXICILLIN 875 MG TABS 1 tab by mouth twice daily AMOXICILLIN 875 MG TABS 784812 AMOXICILLIN Inactive Vital Signs Date Name Value Unit Range Description blood pressure, diastolic - 8462-4 72 mm[Hg] BP hoff blood pressure, systolic - 8480-6 114 mm[Hg] BP sys pulse rate E&M - 8867-4 114 /min Heart rate temperature E&M 97.6 [degF] Body temperature weight E&M - 3141-9 102 [lb_av] Weight Measured Encounters Code Encounter Date Provider Facility CPT-99968 Level 3 Est. Patient 16:54:18 CDT Rojas Turner MD [facility] -[facility]
--- OUTSIDE RECORDS SUMMARY | 2017-01-29 13:33 | XMS REPORT | Clinical Summary ---
Author Author Admin, STANISLAV Organization [facility] Address Unknown Phone Unavailable Allergies, Adverse Reactions, Alerts Allergy Name Reaction Description Start Date Severity Status Provider No Known [facility]ies [facility] Conditions or Problems Problem Name Problem Code [...] then 1 daily for 4 days AZITHROMYCIN 78369807369 Active Deidra Moreau DANIEL Active AIRBORNE ORAL CHEW 1 a day MULTIPLE VITAMINS- MINERALS 96303776965 No Longer Active Jakub Ramirez MD Active LORATADINE 10 MG TABS 1 daily as needed for allergies LORATADINE 44106565323 No Longer Active Jakub Ramirez MD Active BENADRYL ITCH STOPPING 2 % EXT GEL apply four times a day as needed for itching DIPHENHYDRAMINE HCL 52455764660 No Longer Active Jakub Ramirez MD Active ANUSOL-HC 2.5 % RECTAL CREA apply twice a day to hemorrhoid as needed HYDROCORTISONE 90667571851 No Longer Active Jakub Ramirez MD Active VENTOLIN HFA 108 (90 BASE) MCG/ACT AERS 2 puffs four times a day as needed for cough or wheezing ALBUTEROL SULFATE 58680229911 Active Jakub Ramirez MD Active HYDROXYZINE HCL 10 MG ORAL TABS 1 to 2 three times a day as needed for itching HYDROXYZINE HCL 90114772601 No Longer Active Leah Bassett LPN Active CLARITIN 10 MG TAB 1 tablet by mouth daily as needed for allergies LORATADINE 15898978769 Active Leah Bassett LPN Active STRATTERA 10 MG CAPS 1 daily ATOMOXETINE HCL 37890373628 No Longer Active Jakub Ramirez MD Active IBUPROFEN 800 MG TABS 1 three times a day as needed for headache IBUPROFEN 09385513729 Active Jakub Ramirez MD Active HYDROCODONE-ACETAMINOPHEN 5-325 MG TABS 1 tab by mouth every 8 hours as needed for pain HYDROCODONE-ACETAMINOPHEN 12260695126 No Longer Active Jakub Ramirez MD Active AQUAPHILIC EXT OINT once daily as needed EMOLLIENT 59512213718 Active Jakub Ramirez MD Active ZADITOR 0.025 % OPHTH SOLN once or twice daily as needed KETOTIFEN FUMARATE 46622467408 Active Jakub Ramirez MD Active VYVANSE 20 MG CAPS twice daily LISDEXAMFETAMINE DIMESYLATE 18117649795 Active Jakub Ramirez MD Active XANAX 0.25 MG TABS take one as needed twice daily ALPRAZOLAM 75120611280 Active Jakub Ramirez MD Active ABILIFY 2 MG ORAL TABS once daily ARIPIPRAZOLE 91211651637 Active Jakub Ramirez MD Active AMOXICILLIN 875 MG TABS 1 tab by mouth twice daily AMOXICILLIN 86552590904 No Longer Active Rojas Turner MD Active HYDROCODONE-ACETAMINOPHEN 5-325 MG TABS 1 tab by mouth every 8 hours as needed for pain HYDROCODONE-ACETAMINOPHEN 5-325 MG TABS 809945 HYDROCODONE-ACETAMINOPHEN Inactive STRATTERA 10 MG CAPS 1 daily STRATTERA 10 MG CAPS 435101 ATOMOXETINE HCL Inactive HYDROXYZINE HCL 10 MG ORAL TABS 1 to 2 three times a day as needed for itching HYDROXYZINE HCL 10 MG ORAL TABS 904778 HYDROXYZINE HCL Inactive ANUSOL-HC 2.5 % RECTAL CREA apply twice a day to hemorrhoid as needed ANUSOL-HC 2.5 % RECTAL CREA 003946 HYDROCORTISONE Inactive BENADRYL ITCH STOPPING 2 % EXT GEL apply four times a day as needed for itching BENADRYL ITCH STOPPING 2 % EXT GEL DIPHENHYDRAMINE HCL Inactive LORATADINE 10 MG TABS 1 daily as needed for allergies LORATADINE 10 MG TABS 965378 LORATADINE Inactive AIRBORNE ORAL CHEW 1 a day AIRBORNE ORAL CHEW MULTIPLE VITAMINS-MINERALS Inactive AMOXICILLIN 875 MG TABS 1 tab by mouth twice daily AMOXICILLIN 875 MG TABS 917395 AMOXICILLIN Inactive Vital Signs Date Name Value [...] Negative;Positive Encounters Code Encounter Date Provider Facility CPT-33944 Level 3 Est. Patient 12:51:13 CDT Jakub Ramirez MD [facility] CPT-39949 Level 3 Est. Patient 14:46:53 CDT Jakub Ramirez MD [facility] CPT-17749 Level 3 Est. Patient 12:51:53 CDT Jakub Ramirez MD [facility] CPT-23209 Level 3 Est. Patient 16:54:18 CDT Rojas Turner MD [facility] -[facility]
--- OUTSIDE RECORDS SUMMARY | 2017-01-29 13:33 | XMS REPORT | Clinical Summary ---
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 CLARITIN 10 MG TAB 1 tablet by mouth daily as needed for allergies LORATADINE 57178981840 Active Leah Bassett STOCK LIFTER Active STRATTERA 10 MG CAPS 1 daily ATOMOXETINE HCL 88565949702 No Longer Active Jakub Ramirez MD Active ANUSOL-HC 2.5 % RECTAL CREA apply twice a day to hemorrhoid as needed HYDROCORTISONE 24395251329 Active Jakub Ramirez MD Active IBUPROFEN 800 MG TABS 1 three times a day as needed for headache IBUPROFEN 81052113127 Active Jakub Ramirez MD Active HYDROCODONE-ACETAMINOPHEN 5-325 MG TABS 1 tab by mouth every 8 hours as needed for pain HYDROCODONE-ACETAMINOPHEN 32804757854 No Longer Active Jakub Ramirez MD Active AQUAPHILIC EXT OINT once daily as needed EMOLLIENT 49380566723 Active Jakub Ramirez MD Active ZADITOR 0.025 % OPHTH SOLN once or twice daily as needed KETOTIFEN FUMARATE 84244186339 Active Jakub Ramirez MD Active VYVANSE 20 MG CAPS twice daily LISDEXAMFETAMINE DIMESYLATE 62296339804 Active Jakub Ramirez MD Active XANAX 0.25 MG TABS take one as needed twice daily ALPRAZOLAM 51771724482 Active Jakub Ramirez MD Active ABILIFY 2 MG ORAL TABS once daily ARIPIPRAZOLE 01871395652 Active Jakub Ramirez MD Active AMOXICILLIN 875 MG TABS 1 tab by mouth twice daily AMOXICILLIN 34310609325 No Longer Active Rojas Turner MD Active HYDROCODONE-ACETAMINOPHEN 5-325 MG TABS 1 tab by mouth every 8 hours as needed for pain HYDROCODONE-ACETAMINOPHEN 5-325 MG TABS 590971 HYDROCODONE-ACETAMINOPHEN Inactive STRATTERA 10 MG CAPS 1 daily STRATTERA 10 MG CAPS ATOMOXETINE HCL Inactive HYDROXYZINE HCL 10 MG ORAL TABS 1 to 2 three times a day as needed for itching HYDROXYZINE HCL 10 MG ORAL TABS 614204 HYDROXYZINE HCL Inactive AMOXICILLIN 875 MG TABS 1 tab by mouth twice daily AMOXICILLIN 875 MG TABS 476093 AMOXICILLIN Inactive Vital Signs Date Name Value Unit Range Description blood pressure, diastolic - 8462-4 72 mm[Hg] BP hoff blood pressure, systolic - 8480-6 114 mm[Hg] BP sys pulse rate E&M - 8867-4 114 /min Heart rate temperature E&M 97.6 [degF] Body temperature weight E&M - 3141-9 102 [lb_av] Weight Measured Encounters Code Encounter Date Provider Facility CPT-56574 Level 3 Est. Patient 16:54:18 CDT Rojas Turner MD [facility] -[facility]
--- OUTSIDE RECORDS SUMMARY | 2017-01-29 13:33 | XMS REPORT | Clinical Summary ---
Author Author Admin, STANISLAV Organization [facility] Address Unknown Phone Unavailable Allergies, Adverse Reactions, [...] day as needed for itching DIPHENHYDRAMINE HCL 01426936678 Active Jakub Ramirez MD Active LORATADINE 10 MG TABS 1 daily as needed for allergies LORATADINE 24364383956 Active Jakub Ramirez MD Active AIRBORNE ORAL CHEW 1 a day MULTIPLE VITAMINS-MINERALS 92581951996 Active Jakub Ramirez MD Active VENTOLIN HFA 108 (90 BASE) MCG/ACT AERS 2 puffs four times a day as needed for cough or wheezing ALBUTEROL SULFATE 15158380688 Active Jakub Ramirez MD Active HYDROXYZINE HCL 10 MG ORAL TABS 1 to 2 three times a day as needed for itching HYDROXYZINE HCL 14247760141 No Longer Active Leah Bassett LPN Active CLARITIN 10 MG TAB 1 tablet by mouth daily as needed for allergies LORATADINE 03994039435 Active Leah Bassett LPN Active STRATTERA 10 MG CAPS 1 daily ATOMOXETINE HCL 07247874991 No Longer Active Jakub Ramirez MD Active ANUSOL-HC 2.5 % RECTAL CREA apply twice a day to hemorrhoid as needed HYDROCORTISONE 21078018162 Active Jakub Ramirez MD Active IBUPROFEN 800 MG TABS 1 three times a day as needed for headache IBUPROFEN 96360076040 Active Jakub Ramirez MD Active HYDROCODONE-ACETAMINOPHEN 5-325 MG TABS 1 tab by mouth every 8 hours as needed for pain HYDROCODONE-ACETAMINOPHEN 91838296790 No Longer Active Jakub Ramirez MD Active AQUAPHILIC EXT OINT once daily as needed EMOLLIENT 93645396472 Active Jakub Ramirez MD Active ZADITOR 0.025 % OPHTH SOLN once or twice daily as needed KETOTIFEN FUMARATE 92305464181 Active Jakub Ramirez MD Active VYVANSE 20 MG CAPS twice daily LISDEXAMFETAMINE DIMESYLATE 49255813372 Active Jakub Ramirez MD Active XANAX 0.25 MG TABS take one as needed twice daily ALPRAZOLAM 00630690790 Active Jakub Ramirez MD Active ABILIFY 2 MG ORAL TABS once daily ARIPIPRAZOLE 73060210102 Active Jakub Ramirez MD Active AMOXICILLIN 875 MG TABS 1 tab by mouth twice daily AMOXICILLIN 49937857221 No Longer Active Rojas Turner MD Active HYDROCODONE-ACETAMINOPHEN 5-325 MG TABS 1 tab by mouth every 8 hours as needed for pain HYDROCODONE-ACETAMINOPHEN 5-325 MG TABS 924511 HYDROCODONE-ACETAMINOPHEN Inactive STRATTERA 10 MG CAPS 1 daily STRATTERA 10 MG CAPS 734966 ATOMOXETINE HCL Inactive HYDROXYZINE HCL 10 MG ORAL TABS 1 to 2 three times a day as needed for itching HYDROXYZINE HCL 10 MG ORAL TABS 966490 HYDROXYZINE HCL Inactive AMOXICILLIN 875 MG TABS 1 tab by mouth twice daily AMOXICILLIN 875 MG TABS 411163 AMOXICILLIN Inactive Vital Signs Date Name Value [...] Measured Encounters Code Encounter Date Provider Facility CPT-32591 Level 3 Est. Patient 14:46:53 CDT Jakub Ramirez MD [facility] CPT-53881 Level 3 Est. Patient 12:51:53 CDT Jakub Ramirez MD [facility] CPT-50853 Level 3 Est. Patient 16:54:18 CDT Rojas Turner MD [facility] -[facility]
--- OUTSIDE RECORDS SUMMARY | 2017-01-29 13:33 | XMS REPORT | Clinical Summary ---
Author Author Admin, STANISLAV Organization [facility] Address Unknown Phone Unavailable Allergies, Adverse Reactions, Alerts Allergy Name Reaction Description Start Date Severity Status Provider No Known Allergies Leah Bassett PILLOWCASE CLEANER Conditions or Problems Problem Name Problem Code [...] day as needed for itching HYDROXYZINE HCL 89936146300 No Longer Active Leah Bassett PILLOWCASE CLEANER Active CLARITIN 10 MG TAB 1 tablet by mouth daily as needed for allergies LORATADINE 63014753671 Active Leah Bassett PILLOWCASE CLEANER Active STRATTERA 10 MG CAPS 1 daily ATOMOXETINE HCL 74933561363 No Longer Active Jakub Ramirez MD Active ANUSOL-HC 2.5 % RECTAL CREA apply twice a day to hemorrhoid as needed HYDROCORTISONE 13811190640 Active Jakub Ramirez MD Active IBUPROFEN 800 MG TABS 1 three times a day as needed for headache IBUPROFEN 58232605350 Active Jakub Ramirez MD Active HYDROCODONE-ACETAMINOPHEN 5-325 MG TABS 1 tab by mouth every 8 hours as needed for pain HYDROCODONE-ACETAMINOPHEN 68213948388 No Longer Active Jakub Ramirez MD Active AQUAPHILIC EXT OINT once daily as needed EMOLLIENT 05619822556 Active Jakub Ramirez MD Active ZADITOR 0.025 % OPHTH SOLN once or twice daily as needed KETOTIFEN FUMARATE 51313002418 Active Jakub Ramirez MD Active VYVANSE 20 MG CAPS twice daily LISDEXAMFETAMINE DIMESYLATE 38069463862 Active Jakub Ramirez MD Active XANAX 0.25 MG TABS take one as needed twice daily ALPRAZOLAM 13601883090 Active Jakub Ramirez MD Active ABILIFY 2 MG ORAL TABS once daily ARIPIPRAZOLE 58201804979 Active Jakub Ramirez MD Active AMOXICILLIN 875 MG TABS 1 tab by mouth twice daily AMOXICILLIN 87539908967 No Longer Active Rojas Turner MD Active HYDROCODONE-ACETAMINOPHEN 5-325 MG TABS 1 tab by mouth every 8 hours as needed for pain HYDROCODONE-ACETAMINOPHEN 5-325 MG TABS 059271 HYDROCODONE-ACETAMINOPHEN Inactive STRATTERA 10 MG CAPS 1 daily STRATTERA 10 MG CAPS ATOMOXETINE HCL Inactive HYDROXYZINE HCL 10 MG ORAL TABS 1 to 2 three times a day as needed for itching HYDROXYZINE HCL 10 MG ORAL TABS 998061 HYDROXYZINE HCL Inactive AMOXICILLIN 875 MG TABS 1 tab by mouth twice daily AMOXICILLIN 875 MG TABS 813128 AMOXICILLIN Inactive Vital Signs Date Name Value Unit Range Description blood pressure, diastolic - 8462-4 72 mm[Hg] BP hoff blood pressure, systolic - 8480-6 114 mm[Hg] BP sys pulse rate E&M - 8867-4 114 /min Heart rate temperature E&M 97.6 [degF] Body temperature weight E&M - 3141-9 102 [lb_av] Weight Measured Encounters Code Encounter Date Provider Facility CPT-51296 Level 3 Est. Patient 16:54:18 CDT Rojas Turner MD [facility] -[facility]
--- OUTSIDE RECORDS SUMMARY | 2017-01-29 13:33 | XMS REPORT | Clinical Summary ---
Author Author Admin, STANISLAV Organization [facility] Address Unknown Phone Unavailable Allergies, Adverse [...] day as needed for itching DIPHENHYDRAMINE HCL 71979233421 Active Jakub Ramirez MD Active LORATADINE 10 MG TABS 1 daily as needed for allergies LORATADINE 10113827436 Active Jakub Ramirez MD Active AIRBORNE ORAL CHEW 1 a day MULTIPLE VITAMINS-MINERALS 62662028033 Active Jakub Ramirez MD Active VENTOLIN HFA 108 (90 BASE) MCG/ACT AERS 2 puffs four times a day as needed for cough or wheezing ALBUTEROL SULFATE 26521576020 Active Jakub Ramirez MD Active HYDROXYZINE HCL 10 MG ORAL TABS 1 to 2 three times a day as needed for itching HYDROXYZINE HCL 68655067393 No Longer Active Leah Bassett LPN Active CLARITIN 10 MG TAB 1 tablet by mouth daily as needed for allergies LORATADINE 57996303046 Active Leah Bassett LPN Active STRATTERA 10 MG CAPS 1 daily ATOMOXETINE HCL 53121115761 No Longer Active Jakub Ramirez MD Active ANUSOL-HC 2.5 % RECTAL CREA apply twice a day to hemorrhoid as needed HYDROCORTISONE 65603356331 Active Jakub Ramirez MD Active IBUPROFEN 800 MG TABS 1 three times a day as needed for headache IBUPROFEN 98844179212 Active Jakub Ramirez MD Active HYDROCODONE-ACETAMINOPHEN 5-325 MG TABS 1 tab by mouth every 8 hours as needed for pain HYDROCODONE-ACETAMINOPHEN 90293013238 No Longer Active Jakub Ramirez MD Active AQUAPHILIC EXT OINT once daily as needed EMOLLIENT 16806709950 Active Jakub Ramirez MD Active ZADITOR 0.025 % OPHTH SOLN once or twice daily as needed KETOTIFEN FUMARATE 88603709884 Active Jakub Ramirez MD Active VYVANSE 20 MG CAPS twice daily LISDEXAMFETAMINE DIMESYLATE 49646165766 Active Jakub Ramirez MD Active XANAX 0.25 MG TABS take one as needed twice daily ALPRAZOLAM 26894486872 Active Jakub Ramirez MD Active ABILIFY 2 MG ORAL TABS once daily ARIPIPRAZOLE 66952178414 Active Jakub Ramirez MD Active AMOXICILLIN 875 MG TABS 1 tab by mouth twice daily AMOXICILLIN 62680335718 No Longer Active Rojas Turner MD Active HYDROCODONE-ACETAMINOPHEN 5-325 MG TABS 1 tab by mouth every 8 hours as needed for pain HYDROCODONE-ACETAMINOPHEN 5-325 MG TABS 979149 HYDROCODONE-ACETAMINOPHEN Inactive STRATTERA 10 MG CAPS 1 daily STRATTERA 10 MG CAPS 700885 ATOMOXETINE HCL Inactive HYDROXYZINE HCL 10 MG ORAL TABS 1 to 2 three times a day as needed for itching HYDROXYZINE HCL 10 MG ORAL TABS 272366 HYDROXYZINE HCL Inactive AMOXICILLIN 875 MG TABS 1 tab by mouth twice daily AMOXICILLIN 875 MG TABS 539332 AMOXICILLIN Inactive Vital Signs Date Name Value [...] Measured Encounters Code Encounter Date Provider Facility CPT-96401 Level 3 Est. Patient 14:46:53 CDT Jakub Ramirez MD [facility] CPT-62419 Level 3 Est. Patient 12:51:53 CDT Jakub Ramirez MD [facility] CPT-23866 Level 3 Est. Patient 16:54:18 CDT Rojas Turner MD [facility] -[facility]
--- OUTSIDE RECORDS SUMMARY | 2017-01-29 13:34 | XMS REPORT | Clinical Summary ---
Author Author Admin, Savita Organization 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 Conditions or Problems Problem Name Problem Code [...] CHEW 1 a day MULTIPLE VITAMINS- MINERALS 98009287306 No Longer Active Jakub Ramirez MD Active LORATADINE 10 MG TABS 1 daily as needed for allergies LORATADINE 72304177877 No Longer Active Jakub Ramirez MD Active BENADRYL ITCH STOPPING 2 % EXT GEL apply four times a day as needed for itching DIPHENHYDRAMINE HCL 34908393662 No Longer Active Jakub Ramirez MD Active ANUSOL-HC 2.5 % RECTAL CREA apply twice a day to hemorrhoid as needed HYDROCORTISONE 78934566849 No Longer Active Jakub Ramirez MD Active VENTOLIN HFA 108 (90 BASE) MCG/ACT AERS 2 puffs four times a day as needed for cough or wheezing ALBUTEROL SULFATE 42669472894 Active Jaukb Ramirez MD Active HYDROXYZINE HCL 10 MG ORAL TABS 1 to 2 three times a day as needed for itching HYDROXYZINE HCL 38957278287 No Longer Active Leah Bassett LPN Active CLARITIN 10 MG TAB 1 tablet by mouth daily as needed for allergies LORATADINE 36480078868 Active Leah Bassett LPN Active STRATTERA 10 MG CAPS 1 daily ATOMOXETINE HCL 47614892354 No Longer Active Jakub Ramirez MD Active IBUPROFEN 800 MG TABS 1 three times a day as needed for headache IBUPROFEN 44380459693 Active Jakub Ramirez MD Active HYDROCODONE-ACETAMINOPHEN 5-325 MG TABS 1 tab by mouth every 8 hours as needed for pain HYDROCODONE-ACETAMINOPHEN 01745352266 No Longer Active Jakub Ramirez MD Active AQUAPHILIC EXT OINT once daily as needed EMOLLIENT 87692837307 Active Jakub Ramirez MD Active ZADITOR 0.025 % OPHTH SOLN once or twice daily as needed KETOTIFEN FUMARATE 20730224301 Active Jakub Ramirez MD Active VYVANSE 20 MG CAPS twice daily LISDEXAMFETAMINE DIMESYLATE 91619074571 Active Jakub Ramirez MD Active XANAX 0.25 MG TABS take one as needed twice daily ALPRAZOLAM 91470921973 Active Jakub Ramirez MD Active ABILIFY 2 MG ORAL TABS once daily ARIPIPRAZOLE 38629965939 Active Jakub Ramirez MD Active AMOXICILLIN 875 MG TABS 1 tab by mouth twice daily AMOXICILLIN 84856466412 No Longer Active Rojas Turner MD Active HYDROCODONE-ACETAMINOPHEN 5-325 MG TABS 1 tab by mouth every 8 hours as needed for pain HYDROCODONE-ACETAMINOPHEN 5-325 MG TABS 736478 HYDROCODONE-ACETAMINOPHEN Inactive STRATTERA 10 MG CAPS 1 daily STRATTERA 10 MG CAPS 152714 ATOMOXETINE HCL Inactive HYDROXYZINE HCL 10 MG ORAL TABS 1 to 2 three times a day as needed for itching HYDROXYZINE HCL 10 MG ORAL TABS 674339 HYDROXYZINE HCL Inactive ANUSOL-HC 2.5 % RECTAL CREA apply twice a day to hemorrhoid as needed ANUSOL-HC 2.5 % RECTAL CREA 153465 HYDROCORTISONE Inactive BENADRYL ITCH STOPPING 2 % EXT GEL apply four times a day as needed for itching BENADRYL ITCH STOPPING 2 % EXT GEL DIPHENHYDRAMINE HCL Inactive LORATADINE 10 MG TABS 1 daily as needed for allergies LORATADINE 10 MG TABS 582832 LORATADINE Inactive AIRBORNE ORAL CHEW 1 a day AIRBORNE ORAL CHEW MULTIPLE VITAMINS-MINERALS Inactive AMOXICILLIN 875 MG TABS 1 tab by mouth twice daily AMOXICILLIN 875 MG TABS 121560 AMOXICILLIN Inactive Vital Signs Date Name Value [...] Negative;Positive Encounters Code Encounter Date Provider Facility CPT-79007 Level 3 Est. Patient 12:51:13 CDT Jakub Ramirez MD [facility] CPT-25166 Level 3 Est. Patient 14:46:53 CDT Jakub Ramirez MD [facility] CPT-70264 Level 3 Est. Patient 12:51:53 CDT Jakub Ramirez MD [facility] CPT-22909 Level 3 Est. Patient 16:54:18 CDT Rojsa Turner MD [facility] -[facility]
--- OUTSIDE RECORDS SUMMARY | 2017-01-29 13:34 | XMS REPORT | Clinical Summary ---
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 MEDICINE SPECIALIST Conditions or Problems Problem Name Problem Code [...] day as needed for itching HYDROXYZINE HCL 68633762887 No Longer Active Leah Bassett EMERGENCY MEDICINE SPECIALIST Active CLARITIN 10 MG TAB 1 tablet by mouth daily as needed for allergies LORATADINE 03866751796 Active Leah Bassett EMERGENCY MEDICINE SPECIALIST Active STRATTERA 10 MG CAPS 1 daily ATOMOXETINE HCL 47050619040 No Longer Active Jakub Ramirez MD Active ANUSOL-HC 2.5 % RECTAL CREA apply twice a day to hemorrhoid as needed HYDROCORTISONE 22006761109 Active Jakub Ramirez MD Active IBUPROFEN 800 MG TABS 1 three times a day as needed for headache IBUPROFEN 27376196260 Active Jakub Ramirez MD Active HYDROCODONE-ACETAMINOPHEN 5-325 MG TABS 1 tab by mouth every 8 hours as needed for pain HYDROCODONE-ACETAMINOPHEN 52990526643 No Longer Active Jakub Ramirez MD Active AQUAPHILIC EXT OINT once daily as needed EMOLLIENT 83306280421 Active Jakub Ramirez MD Active ZADITOR 0.025 % OPHTH SOLN once or twice daily as needed KETOTIFEN FUMARATE 26325571559 Active Jakub Ramirez MD Active VYVANSE 20 MG CAPS twice daily LISDEXAMFETAMINE DIMESYLATE 10640707782 Active Jakub Ramirez MD Active XANAX 0.25 MG TABS take one as needed twice daily ALPRAZOLAM 48020128851 Active Jakub Ramirez MD Active ABILIFY 2 MG ORAL TABS once daily ARIPIPRAZOLE 79170608384 Active Jakub Ramirez MD Active AMOXICILLIN 875 MG TABS 1 tab by mouth twice daily AMOXICILLIN 31949337088 No Longer Active Rojas Turner MD Active HYDROCODONE-ACETAMINOPHEN 5-325 MG TABS 1 tab by mouth every 8 hours as needed for pain HYDROCODONE-ACETAMINOPHEN 5-325 MG TABS 429066 HYDROCODONE-ACETAMINOPHEN Inactive STRATTERA 10 MG CAPS 1 daily STRATTERA 10 MG CAPS ATOMOXETINE HCL Inactive HYDROXYZINE HCL 10 MG ORAL TABS 1 to 2 three times a day as needed for itching HYDROXYZINE HCL 10 MG ORAL TABS 128006 HYDROXYZINE HCL Inactive AMOXICILLIN 875 MG TABS 1 tab by mouth twice daily AMOXICILLIN 875 MG TABS 394457 AMOXICILLIN Inactive Vital Signs Date Name Value Unit Range Description blood pressure, diastolic - 8462-4 72 mm[Hg] BP hoff blood pressure, systolic - 8480-6 114 mm[Hg] BP sys pulse rate E&M - 8867-4 114 /min Heart rate temperature E&M 97.6 [degF] Body temperature weight E&M - 3141-9 102 [lb_av] Weight Measured Encounters Code Encounter Date Provider Facility CPT-88087 Level 3 Est. Patient 16:54:18 CDT Rojas Turner MD [facility] -[facility]
--- OUTSIDE RECORDS SUMMARY | 2017-01-29 13:34 | XMS REPORT | Clinical Summary ---
Author Author Admin, STANISLAV Organization [facility] Address Unknown Phone Unavailable Allergies, Adverse Reactions, Alerts Allergy Name Reaction Description Start Date Severity Status Provider No Known Allergies Leah Bassett LPN Conditions or Problems Problem Name Problem Code [...] needed for cough or wheezing ALBUTEROL SULFATE 54261809982 Active Jakub Ramirez MD Active HYDROXYZINE HCL 10 MG ORAL TABS 1 to 2 three times a day as needed for itching HYDROXYZINE HCL 76439462077 No Longer Active Leah Bassett LPN Active CLARITIN 10 MG TAB 1 tablet by mouth daily as needed for allergies LORATADINE 66870742872 Active Leah Bassett LPN Active STRATTERA 10 MG CAPS 1 daily ATOMOXETINE HCL 67419393003 No Longer Active Jakub Ramirez MD Active ANUSOL-HC 2.5 % RECTAL CREA apply twice a day to hemorrhoid as needed HYDROCORTISONE 20647448527 Active Jakub Ramirez MD Active IBUPROFEN 800 MG TABS 1 three times a day as needed for headache IBUPROFEN 51633381012 Active Jakub Ramirez MD Active HYDROCODONE-ACETAMINOPHEN 5-325 MG TABS 1 tab by mouth every 8 hours as needed for pain HYDROCODONE-ACETAMINOPHEN 84408707213 No Longer Active Jakub Ramirez MD Active AQUAPHILIC EXT OINT once daily as needed EMOLLIENT 64995588925 Active Jakub Ramirez MD Active ZADITOR 0.025 % OPHTH SOLN once or twice daily as needed KETOTIFEN FUMARATE 07634073649 Active Jakub Ramirez MD Active VYVANSE 20 MG CAPS twice daily LISDEXAMFETAMINE DIMESYLATE 77994246870 Active Jakub Ramirez MD Active XANAX 0.25 MG TABS take one as needed twice daily ALPRAZOLAM 71804157441 Active Jakub Ramirez MD Active ABILIFY 2 MG ORAL TABS once daily ARIPIPRAZOLE 04722614717 Active Jakub Ramirez MD Active AMOXICILLIN 875 MG TABS 1 tab by mouth twice daily AMOXICILLIN 80321293358 No Longer Active Rojas Turner MD Active HYDROCODONE-ACETAMINOPHEN 5-325 MG TABS 1 tab by mouth every 8 hours as needed for pain HYDROCODONE-ACETAMINOPHEN 5-325 MG TABS 452190 HYDROCODONE-ACETAMINOPHEN Inactive STRATTERA 10 MG CAPS 1 daily STRATTERA 10 MG CAPS 075518 ATOMOXETINE HCL Inactive HYDROXYZINE HCL 10 MG ORAL TABS 1 to 2 three times a day as needed for itching HYDROXYZINE HCL 10 MG ORAL TABS 041643 HYDROXYZINE HCL Inactive AMOXICILLIN 875 MG TABS 1 tab by mouth twice daily AMOXICILLIN 875 MG TABS 190378 AMOXICILLIN Inactive Vital Signs Date Name Value Unit Range Description blood pressure, diastolic 69 mm[Hg] BP hoff [...] Measured Encounters Code Encounter Date Provider Facility CPT-88916 Level 3 Est. Patient 12:51:53 CDT Jakub Ramirez MD [facility] CPT-36957 Level 3 Est. Patient 16:54:18 CDT Rojas Turner MD [facility]
--- OUTSIDE RECORDS SUMMARY | 2017-01-29 13:34 | XMS REPORT | Clinical Summary ---
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 Conditions or Problems Problem Name Problem Code [...] needed for cough or wheezing ALBUTEROL SULFATE 72844996699 Active Jakub Ramirez MD Active HYDROXYZINE HCL 10 MG ORAL TABS 1 to 2 three times a day as needed for itching HYDROXYZINE HCL 08388068850 No Longer Active Leah Bassett LPN Active CLARITIN 10 MG TAB 1 tablet by mouth daily as needed for allergies LORATADINE 51531836285 Active Leah Bassett LPN Active STRATTERA 10 MG CAPS 1 daily ATOMOXETINE HCL 49479069403 No Longer Active Jakub Ramirez MD Active ANUSOL-HC 2.5 % RECTAL CREA apply twice a day to hemorrhoid as needed HYDROCORTISONE 63643109072 Active Jakub Ramirez MD Active IBUPROFEN 800 MG TABS 1 three times a day as needed for headache IBUPROFEN 59952490818 Active Jakub Ramirez MD Active HYDROCODONE-ACETAMINOPHEN 5-325 MG TABS 1 tab by mouth every 8 hours as needed for pain HYDROCODONE-ACETAMINOPHEN 52524382222 No Longer Active Jakub Ramirez MD Active AQUAPHILIC EXT OINT once daily as needed EMOLLIENT 69332209953 Active Jakub Ramirez MD Active ZADITOR 0.025 % OPHTH SOLN once or twice daily as needed KETOTIFEN FUMARATE 05574975556 Active Jakub Ramirez MD Active VYVANSE 20 MG CAPS twice daily LISDEXAMFETAMINE DIMESYLATE 84283352267 Active Jakub Ramirez MD Active XANAX 0.25 MG TABS take one as needed twice daily ALPRAZOLAM 31014312061 Active Jakub Ramirez MD Active ABILIFY 2 MG ORAL TABS once daily ARIPIPRAZOLE 12809405838 Active Jakub Ramirez MD Active AMOXICILLIN 875 MG TABS 1 tab by mouth twice daily AMOXICILLIN 43201610252 No Longer Active Rojas Turner MD Active HYDROCODONE-ACETAMINOPHEN 5-325 MG TABS 1 tab by mouth every 8 hours as needed for pain HYDROCODONE-ACETAMINOPHEN 5-325 MG TABS 968210 HYDROCODONE-ACETAMINOPHEN Inactive STRATTERA 10 MG CAPS 1 daily STRATTERA 10 MG CAPS ATOMOXETINE HCL Inactive HYDROXYZINE HCL 10 MG ORAL TABS 1 to 2 three times a day as needed for itching HYDROXYZINE HCL 10 MG ORAL TABS 047653 HYDROXYZINE HCL Inactive AMOXICILLIN 875 MG TABS 1 tab by mouth twice daily AMOXICILLIN 875 MG TABS 788692 AMOXICILLIN Inactive Vital Signs Date Name Value [...] Measured Encounters Code Encounter Date Provider Facility CPT-74919 Level 3 Est. Patient 12:51:53 CDT Jakub Ramirez MD [facility] CPT-24542 Level 3 Est. Patient 16:54:18 CDT Rojas Turner MD [facility] -[facility]
--- OUTSIDE RECORDS SUMMARY | 2017-01-29 13:35 | XMS REPORT | Clinical Summary ---
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 Conditions or Problems Problem Name Problem Code [...] then 1 daily for 4 days AZITHROMYCIN 33359397075 Active Deidra Moreau DANIEL Active AIRBORNE ORAL CHEW 1 a day MULTIPLE VITAMINS- MINERALS 35668091664 No Longer Active Jakub Ramirez MD Active LORATADINE 10 MG TABS 1 daily as needed for allergies LORATADINE 01747048399 No Longer Active Jakub Ramirez MD Active BENADRYL ITCH STOPPING 2 % EXT GEL apply four times a day as needed for itching DIPHENHYDRAMINE HCL 22824322809 No Longer Active Jakub Ramirez MD Active ANUSOL-HC 2.5 % RECTAL CREA apply twice a day to hemorrhoid as needed HYDROCORTISONE 18245146995 No Longer Active Jakub Ramirez MD Active VENTOLIN HFA 108 (90 BASE) MCG/ACT AERS 2 puffs four times a day as needed for cough or wheezing ALBUTEROL SULFATE 39963193994 Active Jakub Ramirez MD Active HYDROXYZINE HCL 10 MG ORAL TABS 1 to 2 three times a day as needed for itching HYDROXYZINE HCL 21630231350 No Longer Active Leah Bassett LPN Active CLARITIN 10 MG TAB 1 tablet by mouth daily as needed for allergies LORATADINE 05005549460 Active Leah Bassett LPN Active STRATTERA 10 MG CAPS 1 daily ATOMOXETINE HCL 74968933957 No Longer Active Jakub Ramirez MD Active IBUPROFEN 800 MG TABS 1 three times a day as needed for headache IBUPROFEN 06449460012 Active Jakub Ramirez MD Active HYDROCODONE-ACETAMINOPHEN 5-325 MG TABS 1 tab by mouth every 8 hours as needed for pain HYDROCODONE-ACETAMINOPHEN 47806163167 No Longer Active Jakub Ramirez MD Active AQUAPHILIC EXT OINT once daily as needed EMOLLIENT 97527618978 Active Jakub Ramirez MD Active ZADITOR 0.025 % OPHTH SOLN once or twice daily as needed KETOTIFEN FUMARATE 44645073367 Active Jakub Ramirez MD Active VYVANSE 20 MG CAPS twice daily LISDEXAMFETAMINE DIMESYLATE 75056949321 Active Jakub Ramirez MD Active XANAX 0.25 MG TABS take one as needed twice daily ALPRAZOLAM 24161468033 Active Jakub Ramirez MD Active ABILIFY 2 MG ORAL TABS once daily ARIPIPRAZOLE 62472284108 Active Jakub Ramirez MD Active AMOXICILLIN 875 MG TABS 1 tab by mouth twice daily AMOXICILLIN 57222054575 No Longer Active Rojas Turner MD Active HYDROCODONE-ACETAMINOPHEN 5-325 MG TABS 1 tab by mouth every 8 hours as needed for pain HYDROCODONE-ACETAMINOPHEN 5-325 MG TABS 007770 HYDROCODONE-ACETAMINOPHEN Inactive STRATTERA 10 MG CAPS 1 daily STRATTERA 10 MG CAPS 180413 ATOMOXETINE HCL Inactive HYDROXYZINE HCL 10 MG ORAL TABS 1 to 2 three times a day as needed for itching HYDROXYZINE HCL 10 MG ORAL TABS 125551 HYDROXYZINE HCL Inactive ANUSOL-HC 2.5 % RECTAL CREA apply twice a day to hemorrhoid as needed ANUSOL-HC 2.5 % RECTAL CREA 703376 HYDROCORTISONE Inactive BENADRYL ITCH STOPPING 2 % EXT GEL apply four times a day as needed for itching BENADRYL ITCH STOPPING 2 % EXT GEL DIPHENHYDRAMINE HCL Inactive LORATADINE 10 MG TABS 1 daily as needed for allergies LORATADINE 10 MG TABS 806999 LORATADINE Inactive AIRBORNE ORAL CHEW 1 a day AIRBORNE ORAL CHEW MULTIPLE VITAMINS-MINERALS Inactive AMOXICILLIN 875 MG TABS 1 tab by mouth twice daily AMOXICILLIN 875 MG TABS 280755 AMOXICILLIN Inactive Vital Signs Date Name Value [...] Negative;Positive Encounters Code Encounter Date Provider Facility CPT-03070 Level 3 Est. Patient 12:51:13 CDT Jakub Ramirez MD [facility] CPT-25865 Level 3 Est. Patient 14:46:53 CDT Jakub Ramirez MD [facility] CPT-02892 Level 3 Est. Patient 12:51:53 CDT Jakub Ramirez MD [facility] CPT-21250 Level 3 Est. Patient 16:54:18 CDT Rojas Turner MD [facility] -[facility]
--- OUTSIDE RECORDS SUMMARY | 2017-01-29 13:35 | XMS REPORT | Clinical Summary ---
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 DIRECTOR Conditions or Problems Problem Name Problem [...] day as needed for itching HYDROXYZINE HCL 87801857009 No Longer Active Leah Bassett ASSISTED LIVING NURSING DIRECTOR Active CLARITIN 10 MG TAB 1 tablet by mouth daily as needed for allergies LORATADINE 82303680464 Active Leah Bassett ASSISTED LIVING NURSING DIRECTOR Active STRATTERA 10 MG CAPS 1 daily ATOMOXETINE HCL 77893397619 No Longer Active Jakub Ramirez MD Active ANUSOL-HC 2.5 % RECTAL CREA apply twice a day to hemorrhoid as needed HYDROCORTISONE 67574111017 Active Jakub Ramirez MD Active IBUPROFEN 800 MG TABS 1 three times a day as needed for headache IBUPROFEN 00874877099 Active Jakub Ramirez MD Active HYDROCODONE-ACETAMINOPHEN 5-325 MG TABS 1 tab by mouth every 8 hours as needed for pain HYDROCODONE-ACETAMINOPHEN 54031295919 No Longer Active Jakub Ramirez MD Active AQUAPHILIC EXT OINT once daily as needed EMOLLIENT 33307100823 Active Jakub Ramirez MD Active ZADITOR 0.025 % OPHTH SOLN once or twice daily as needed KETOTIFEN FUMARATE 58446544597 Active Jakub Ramirez MD Active VYVANSE 20 MG CAPS twice daily LISDEXAMFETAMINE DIMESYLATE 81175521420 Active Jakub Ramirez MD Active XANAX 0.25 MG TABS take one as needed twice daily ALPRAZOLAM 43140481094 Active Jakub Ramirez MD Active ABILIFY 2 MG ORAL TABS once daily ARIPIPRAZOLE 38854753788 Active Jkaub Ramirez MD Active AMOXICILLIN 875 MG TABS 1 tab by mouth twice daily AMOXICILLIN 20579812084 No Longer Active Rojas Turner MD Active HYDROCODONE-ACETAMINOPHEN 5-325 MG TABS 1 tab by mouth every 8 hours as needed for pain HYDROCODONE-ACETAMINOPHEN 5-325 MG TABS 424230 HYDROCODONE-ACETAMINOPHEN Inactive STRATTERA 10 MG CAPS 1 daily STRATTERA 10 MG CAPS ATOMOXETINE HCL Inactive HYDROXYZINE HCL 10 MG ORAL TABS 1 to 2 three times a day as needed for itching HYDROXYZINE HCL 10 MG ORAL TABS 452471 HYDROXYZINE HCL Inactive AMOXICILLIN 875 MG TABS 1 tab by mouth twice daily AMOXICILLIN 875 MG TABS 543301 AMOXICILLIN Inactive Vital Signs Date Name Value Unit Range Description blood pressure, diastolic - 8462-4 72 mm[Hg] BP hoff blood pressure, systolic - 8480-6 114 mm[Hg] BP sys pulse rate E&M - 8867-4 114 /min Heart rate temperature E&M 97.6 [degF] Body temperature weight E&M - 3141-9 102 [lb_av] Weight Measured Encounters Code Encounter Date Provider Facility CPT-10254 Level 3 Est. Patient 16:54:18 CDT Rojas Turner MD [facility] -[facility]
--- OUTSIDE RECORDS SUMMARY | 2017-01-29 13:35 | XMS REPORT | Clinical Summary ---
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 Problem Name Problem [...] day as needed for itching HYDROXYZINE HCL 52310941709 No Longer Active Leah Bassett STREAM CONTROL OFFICER Active CLARITIN 10 MG TAB 1 tablet by mouth daily as needed for allergies LORATADINE 75260740309 Active Leah Bassett STREAM CONTROL OFFICER Active STRATTERA 10 MG CAPS 1 daily ATOMOXETINE HCL 20619951288 No Longer Active Jakub Ramirez MD Active ANUSOL-HC 2.5 % RECTAL CREA apply twice a day to hemorrhoid as needed HYDROCORTISONE 17947381582 Active Jakub Ramirez MD Active IBUPROFEN 800 MG TABS 1 three times a day as needed for headache IBUPROFEN 65311848976 Active Jakub Ramirez MD Active HYDROCODONE-ACETAMINOPHEN 5-325 MG TABS 1 tab by mouth every 8 hours as needed for pain HYDROCODONE-ACETAMINOPHEN 60418410897 No Longer Active Jakub Ramirez MD Active AQUAPHILIC EXT OINT once daily as needed EMOLLIENT 80159660033 Active Jakub Ramirez MD Active ZADITOR 0.025 % OPHTH SOLN once or twice daily as needed KETOTIFEN FUMARATE 04264977394 Active Jakub Ramirez MD Active VYVANSE 20 MG CAPS twice daily LISDEXAMFETAMINE DIMESYLATE 29792089752 Active Jakub Ramirez MD Active XANAX 0.25 MG TABS take one as needed twice daily ALPRAZOLAM 52153638134 Active Jakub Ramirez MD Active ABILIFY 2 MG ORAL TABS once daily ARIPIPRAZOLE 15039416555 Active Jakub Ramirez MD Active AMOXICILLIN 875 MG TABS 1 tab by mouth twice daily AMOXICILLIN 49832544112 No Longer Active Rojas Turner MD Active HYDROCODONE-ACETAMINOPHEN 5-325 MG TABS 1 tab by mouth every 8 hours as needed for pain HYDROCODONE-ACETAMINOPHEN 5-325 MG TABS 081403 HYDROCODONE-ACETAMINOPHEN Inactive STRATTERA 10 MG CAPS 1 daily STRATTERA 10 MG CAPS ATOMOXETINE HCL Inactive HYDROXYZINE HCL 10 MG ORAL TABS 1 to 2 three times a day as needed for itching HYDROXYZINE HCL 10 MG ORAL TABS 552120 HYDROXYZINE HCL Inactive AMOXICILLIN 875 MG TABS 1 tab by mouth twice daily AMOXICILLIN 875 MG TABS 937414 AMOXICILLIN Inactive Vital Signs Date Name Value Unit Range Description blood pressure, diastolic - 8462-4 72 mm[Hg] BP hoff blood pressure, systolic - 8480-6 114 mm[Hg] BP sys pulse rate E&M - 8867-4 114 /min Heart rate temperature E&M 97.6 [degF] Body temperature weight E&M - 3141-9 102 [lb_av] Weight Measured Encounters Code Encounter Date Provider Facility CPT-98631 Level 3 Est. Patient 16:54:18 CDT Rojas Turner MD [facility] -[facility]
--- OUTSIDE RECORDS SUMMARY | 2017-01-29 13:35 | XMS REPORT | Clinical Summary ---
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 Conditions or Problems Problem Name Problem Code [...] day as needed for itching HYDROXYZINE HCL 23803251755 No Longer Active Leah Bassett SUPERVISOR COOK HOUSE Active CLARITIN 10 MG TAB 1 tablet by mouth daily as needed for allergies LORATADINE 13627501367 Active Leah Bassett SUPERVISOR COOK HOUSE Active STRATTERA 10 MG CAPS 1 daily ATOMOXETINE HCL 55296981696 No Longer Active Jakub Ramirez MD Active ANUSOL-HC 2.5 % RECTAL CREA apply twice a day to hemorrhoid as needed HYDROCORTISONE 72359112570 Active Jakub Ramirez MD Active IBUPROFEN 800 MG TABS 1 three times a day as needed for headache IBUPROFEN 80547380616 Active Jakub Ramirez MD Active HYDROCODONE-ACETAMINOPHEN 5-325 MG TABS 1 tab by mouth every 8 hours as needed for pain HYDROCODONE-ACETAMINOPHEN 84588969030 No Longer Active Jakub Ramirez MD Active AQUAPHILIC EXT OINT once daily as needed EMOLLIENT 78316814627 Active Jakub Ramirez MD Active ZADITOR 0.025 % OPHTH SOLN once or twice daily as needed KETOTIFEN FUMARATE 19142489645 Active Jakub Ramirez MD Active VYVANSE 20 MG CAPS twice daily LISDEXAMFETAMINE DIMESYLATE 48466899888 Active Jakub Ramirez MD Active XANAX 0.25 MG TABS take one as needed twice daily ALPRAZOLAM 62579219795 Active Jakub Ramirez MD Active ABILIFY 2 MG ORAL TABS once daily ARIPIPRAZOLE 53590213611 Active Jakub Ramirez MD Active AMOXICILLIN 875 MG TABS 1 tab by mouth twice daily AMOXICILLIN 58766172825 No Longer Active Rojas Turner MD Active HYDROCODONE-ACETAMINOPHEN 5-325 MG TABS 1 tab by mouth every 8 hours as needed for pain HYDROCODONE-ACETAMINOPHEN 5-325 MG TABS 371206 HYDROCODONE-ACETAMINOPHEN Inactive STRATTERA 10 MG CAPS 1 daily STRATTERA 10 MG CAPS ATOMOXETINE HCL Inactive HYDROXYZINE HCL 10 MG ORAL TABS 1 to 2 three times a day as needed for itching HYDROXYZINE HCL 10 MG ORAL TABS 154543 HYDROXYZINE HCL Inactive AMOXICILLIN 875 MG TABS 1 tab by mouth twice daily AMOXICILLIN 875 MG TABS 423250 AMOXICILLIN Inactive Vital Signs Date Name Value Unit Range Description blood pressure, diastolic - 8462-4 72 mm[Hg] BP hoff blood pressure, systolic - 8480-6 114 mm[Hg] BP sys pulse rate E&M - 8867-4 114 /min Heart rate temperature E&M 97.6 [degF] Body temperature weight E&M - 3141-9 102 [lb_av] Weight Measured Encounters Code Encounter Date Provider Facility CPT-50057 Level 3 Est. Patient 16:54:18 CDT Rojas Turner MD [facility] -[facility]
--- OUTSIDE RECORDS SUMMARY | 2017-01-29 13:36 | XMS REPORT ---
Author Author [facility] Medical Staff Organization [facility] Address [address] [place], [place] [address] Phone [phone] Care Team Providers Care Machine Cloth Examiner Name Role Phone NEVA GR MD, PP Unavailable Summary purpose CCDA Sent to [facility] Chief Complaint and Reason for Visit Admit Diagnosis 1 NA Problem list No authorized problems tracked for continuity of care are available for this visit. Encounters No authorized problems tracked for encounter diagnoses are available for this visit. Medications No medications recorded for this patient visit Allergies, adverse reactions, alerts No allergy information is available for this patient. Immunizations No immunizations recorded for this patient visit Relevant diagnostic tests and/or laboratory data No authorized results are available for this patient visit History of procedures No procedures recorded for this patient visit. Functional status No functional or cognitive status observations are available for this visit. Vital signs No authorized vital signs are available for this visit. Social history No Social History or smoking status observations were recorded for this visit. ( Unknown if ever smoked.) Treatment Plan No treatment plan text is available for this visit. Hospital discharge instructions No discharge instruction text is available for this visit.
--- OUTSIDE RECORDS SUMMARY | 2017-01-29 13:36 | XMS REPORT | Clinical Summary ---
Author Author Admin, STANISLAV Organization [facility] Address Unknown Phone Unavailable Allergies, Adverse Reactions, [...] needed for cough or wheezing ALBUTEROL SULFATE 73823507134 Active Jakub Ramirez MD Active HYDROXYZINE HCL 10 MG ORAL TABS 1 to 2 three times a day as needed for itching HYDROXYZINE HCL 74996800471 No Longer Active Leah Bassett LPN Active CLARITIN 10 MG TAB 1 tablet by mouth daily as needed for allergies LORATADINE 24243538502 Active Leah Bassett LPN Active STRATTERA 10 MG CAPS 1 daily ATOMOXETINE HCL 65816564492 No Longer Active Jakub Ramirez MD Active ANUSOL-HC 2.5 % RECTAL CREA apply twice a day to hemorrhoid as needed HYDROCORTISONE 12737001344 Active Jakub Ramirez MD Active IBUPROFEN 800 MG TABS 1 three times a day as needed for headache IBUPROFEN 42564523361 Active Jakub Ramirez MD Active HYDROCODONE-ACETAMINOPHEN 5-325 MG TABS 1 tab by mouth every 8 hours as needed for pain HYDROCODONE-ACETAMINOPHEN 54873944501 No Longer Active Jakub Ramirez MD Active AQUAPHILIC EXT OINT once daily as needed EMOLLIENT 76160154057 Active Jakub Ramirez MD Active ZADITOR 0.025 % OPHTH SOLN once or twice daily as needed KETOTIFEN FUMARATE 07802901076 Active Jakub Ramirez MD Active VYVANSE 20 MG CAPS twice daily LISDEXAMFETAMINE DIMESYLATE 42667297751 Active Jakub Ramirez MD Active XANAX 0.25 MG TABS take one as needed twice daily ALPRAZOLAM 45731028741 Active Jakub Ramirez MD Active ABILIFY 2 MG ORAL TABS once daily ARIPIPRAZOLE 49145101085 Active Jakub Ramirez MD Active AMOXICILLIN 875 MG TABS 1 tab by mouth twice daily AMOXICILLIN 87432617117 No Longer Active Rojas Turner MD Active HYDROCODONE-ACETAMINOPHEN 5-325 MG TABS 1 tab by mouth every 8 hours as needed for pain HYDROCODONE-ACETAMINOPHEN 5-325 MG TABS 267176 HYDROCODONE-ACETAMINOPHEN Inactive STRATTERA 10 MG CAPS 1 daily STRATTERA 10 MG CAPS ATOMOXETINE HCL Inactive HYDROXYZINE HCL 10 MG ORAL TABS 1 to 2 three times a day as needed for itching HYDROXYZINE HCL 10 MG ORAL TABS 514849 HYDROXYZINE HCL Inactive AMOXICILLIN 875 MG TABS 1 tab by mouth twice daily AMOXICILLIN 875 MG TABS 393048 AMOXICILLIN Inactive Vital Signs Date Name Value [...] Measured Encounters Code Encounter Date Provider Facility CPT-73676 Level 3 Est. Patient 12:51:53 CDT Jakub Ramirez MD [facility] CPT-45894 Level 3 Est. Patient 16:54:18 CDT Rojas Turner MD [facility] -[facility]
--- OUTSIDE RECORDS SUMMARY | 2017-01-29 13:36 | XMS REPORT | Clinical Summary ---
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 Conditions or Problems Problem Name Problem Code [...] Ramirez MD Hemorrhoids, external 455.3 Active Jakub Ramriez MD External hemorrhoids without mention of complication [...] needed for cough or wheezing ALBUTEROL SULFATE 33884422255 Active Jakub Ramirez MD Active HYDROXYZINE HCL 10 MG ORAL TABS 1 to 2 three times a day as needed for itching HYDROXYZINE HCL 49477599241 No Longer Active Leah Bassett LPN Active CLARITIN 10 MG TAB 1 tablet by mouth daily as needed for allergies LORATADINE 93943319152 Active Leah Bassett LPN Active STRATTERA 10 MG CAPS 1 daily ATOMOXETINE HCL 26421698316 No Longer Active Jakub Ramirez MD Active ANUSOL-HC 2.5 % RECTAL CREA apply twice a day to hemorrhoid as needed HYDROCORTISONE 89040150815 Active Jakub Ramirez MD Active IBUPROFEN 800 MG TABS 1 three times a day as needed for headache IBUPROFEN 66364353402 Active Jakub Ramirez MD Active HYDROCODONE-ACETAMINOPHEN 5-325 MG TABS 1 tab by mouth every 8 hours as needed for pain HYDROCODONE-ACETAMINOPHEN 47117707748 No Longer Active Jakub Ramirez MD Active AQUAPHILIC EXT OINT once daily as needed EMOLLIENT 01951336863 Active Jakub Ramirez MD Active ZADITOR 0.025 % OPHTH SOLN once or twice daily as needed KETOTIFEN FUMARATE 88456690518 Active Jakub Ramirez MD Active VYVANSE 20 MG CAPS twice daily LISDEXAMFETAMINE DIMESYLATE 14173968223 Active Jakub Ramirez MD Active XANAX 0.25 MG TABS take one as needed twice daily ALPRAZOLAM 51059135363 Active Jakub Ramirez MD Active ABILIFY 2 MG ORAL TABS once daily ARIPIPRAZOLE 14532095046 Active Jakub Ramirez MD Active AMOXICILLIN 875 MG TABS 1 tab by mouth twice daily AMOXICILLIN 44087801305 No Longer Active Rojas Turner MD Active HYDROCODONE-ACETAMINOPHEN 5-325 MG TABS 1 tab by mouth every 8 hours as needed for pain HYDROCODONE-ACETAMINOPHEN 5-325 MG TABS 077259 HYDROCODONE-ACETAMINOPHEN Inactive STRATTERA 10 MG CAPS 1 daily STRATTERA 10 MG CAPS 845612 ATOMOXETINE HCL Inactive HYDROXYZINE HCL 10 MG ORAL TABS 1 to 2 three times a day as needed for itching HYDROXYZINE HCL 10 MG ORAL TABS 467752 HYDROXYZINE HCL Inactive AMOXICILLIN 875 MG TABS 1 tab by mouth twice daily AMOXICILLIN 875 MG TABS 171515 AMOXICILLIN Inactive Vital Signs Date Name Value [...] Measured Encounters Code Encounter Date Provider Facility CPT-06363 Level 3 Est. Patient 12:51:53 CDT Jakub Ramirez MD [facility] CPT-69226 Level 3 Est. Patient 16:54:18 CDT Rojas Turner MD [facility] -[facility]
--- OUTSIDE RECORDS SUMMARY | 2017-01-29 13:36 | XMS REPORT | Clinical Summary ---
Author Author Admin, STANISLAV Organization [facility] Address Unknown Phone Unavailable Allergies, Adverse Reactions, [...] day as needed for itching DIPHENHYDRAMINE HCL 24026800548 Active Jakub Ramirez MD Active LORATADINE 10 MG TABS 1 daily as needed for allergies LORATADINE 65677686475 Active Jakub Ramirez MD Active AIRBORNE ORAL CHEW 1 a day MULTIPLE VITAMINS-MINERALS 16768806371 Active Jakub Ramirez MD Active VENTOLIN HFA 108 (90 BASE) MCG/ACT AERS 2 puffs four times a day as needed for cough or wheezing ALBUTEROL SULFATE 99918109651 Active Jakub Ramirez MD Active HYDROXYZINE HCL 10 MG ORAL TABS 1 to 2 three times a day as needed for itching HYDROXYZINE HCL 90611764414 No Longer Active Leah Bassett LPN Active CLARITIN 10 MG TAB 1 tablet by mouth daily as needed for allergies LORATADINE 00206752523 Active Leah Bassett LPN Active STRATTERA 10 MG CAPS 1 daily ATOMOXETINE HCL 19066160805 No Longer Active Jakub Ramirez MD Active ANUSOL-HC 2.5 % RECTAL CREA apply twice a day to hemorrhoid as needed HYDROCORTISONE 65721286645 Active Jakub Ramirez MD Active IBUPROFEN 800 MG TABS 1 three times a day as needed for headache IBUPROFEN 26611440631 Active Jakub Ramirez MD Active HYDROCODONE-ACETAMINOPHEN 5-325 MG TABS 1 tab by mouth every 8 hours as needed for pain HYDROCODONE-ACETAMINOPHEN 30860697940 No Longer Active Jakub Ramirez MD Active AQUAPHILIC EXT OINT once daily as needed EMOLLIENT 21714638521 Active Jakub Ramirez MD Active ZADITOR 0.025 % OPHTH SOLN once or twice daily as needed KETOTIFEN FUMARATE 51041548921 Active Jakub Ramirez MD Active VYVANSE 20 MG CAPS twice daily LISDEXAMFETAMINE DIMESYLATE 09433044702 Active Jakub Ramirez MD Active XANAX 0.25 MG TABS take one as needed twice daily ALPRAZOLAM 93561622526 Active Jakub Ramirez MD Active ABILIFY 2 MG ORAL TABS once daily ARIPIPRAZOLE 18508406900 Active Jakub Ramirez MD Active AMOXICILLIN 875 MG TABS 1 tab by mouth twice daily AMOXICILLIN 49862438409 No Longer Active Rojas Turner MD Active HYDROCODONE-ACETAMINOPHEN 5-325 MG TABS 1 tab by mouth every 8 hours as needed for pain HYDROCODONE-ACETAMINOPHEN 5-325 MG TABS 280819 HYDROCODONE-ACETAMINOPHEN Inactive STRATTERA 10 MG CAPS 1 daily STRATTERA 10 MG CAPS 406143 ATOMOXETINE HCL Inactive HYDROXYZINE HCL 10 MG ORAL TABS 1 to 2 three times a day as needed for itching HYDROXYZINE HCL 10 MG ORAL TABS 651497 HYDROXYZINE HCL Inactive AMOXICILLIN 875 MG TABS 1 tab by mouth twice daily AMOXICILLIN 875 MG TABS 189170 AMOXICILLIN Inactive Vital Signs Date Name Value [...] Measured Encounters Code Encounter Date Provider Facility CPT-44924 Level 3 Est. Patient 14:46:53 CDT Jakub Ramirez MD [facility] CPT-27129 Level 3 Est. Patient 12:51:53 CDT Jakub Ramirez MD [facility] CPT-71717 Level 3 Est. Patient 16:54:18 CDT Rojas Turner MD [facility] -[facility]
--- OUTSIDE RECORDS SUMMARY | 2017-01-29 13:36 | XMS REPORT | Clinical Summary ---
Author Author Admin, E Organization [facility] Address Unknown Phone Unavailable Allergies, Adverse [...] needed for cough or wheezing ALBUTEROL SULFATE 41386156165 Active Jakub Ramirez MD Active HYDROXYZINE HCL 10 MG ORAL TABS 1 to 2 three times a day as needed for itching HYDROXYZINE HCL 80934443996 No Longer Active Leah Bassett LPN Active CLARITIN 10 MG TAB 1 tablet by mouth daily as needed for allergies LORATADINE 62469440899 Active Leah Bassett LPN Active STRATTERA 10 MG CAPS 1 daily ATOMOXETINE HCL 46828628378 No Longer Active Jakub Ramirez MD Active ANUSOL-HC 2.5 % RECTAL CREA apply twice a day to hemorrhoid as needed HYDROCORTISONE 42144015613 Active Jakub Ramirez MD Active IBUPROFEN 800 MG TABS 1 three times a day as needed for headache IBUPROFEN 78145471237 Active Jakub Ramirez MD Active HYDROCODONE-ACETAMINOPHEN 5-325 MG TABS 1 tab by mouth every 8 hours as needed for pain HYDROCODONE-ACETAMINOPHEN 16635553334 No Longer Active Jakub Ramirez MD Active AQUAPHILIC EXT OINT once daily as needed EMOLLIENT 05545135774 Active Jakub Ramirez MD Active ZADITOR 0.025 % OPHTH SOLN once or twice daily as needed KETOTIFEN FUMARATE 33707975440 Active Jakub Ramirez MD Active VYVANSE 20 MG CAPS twice daily LISDEXAMFETAMINE DIMESYLATE 76432389211 Active Jakub Ramirez MD Active XANAX 0.25 MG TABS take one as needed twice daily ALPRAZOLAM 62849045796 Active Jakub Ramirez MD Active ABILIFY 2 MG ORAL TABS once daily ARIPIPRAZOLE 30879337280 Active Jakub Ramirez MD Active AMOXICILLIN 875 MG TABS 1 tab by mouth twice daily AMOXICILLIN 81161026818 No Longer Active Rojas Turner MD Active HYDROCODONE-ACETAMINOPHEN 5-325 MG TABS 1 tab by mouth every 8 hours as needed for pain HYDROCODONE-ACETAMINOPHEN 5-325 MG TABS 810190 HYDROCODONE-ACETAMINOPHEN Inactive STRATTERA 10 MG CAPS 1 daily STRATTERA 10 MG CAPS ATOMOXETINE HCL Inactive HYDROXYZINE HCL 10 MG ORAL TABS 1 to 2 three times a day as needed for itching HYDROXYZINE HCL 10 MG ORAL TABS 639997 HYDROXYZINE HCL Inactive AMOXICILLIN 875 MG TABS 1 tab by mouth twice daily AMOXICILLIN 875 MG TABS 361170 AMOXICILLIN Inactive Vital Signs Date Name Value [...] Measured Encounters Code Encounter Date Provider Facility CPT-52800 Level 3 Est. Patient 12:51:53 CDT Jakub Ramirez MD [facility] CPT-38208 Level 3 Est. Patient 16:54:18 CDT Rojas Turner MD [facility] -[facility]
--- OUTSIDE RECORDS SUMMARY | 2017-01-29 13:37 | XMS REPORT | Clinical Summary ---
Author Author Admin, STANISLAV Organization [facility] [employer] Address Unknown Phone Unavailable Allergies, Adverse Reactions, Alerts Allergy Name Reaction Description Start Date Severity Status Provider No Known Allergies Deidra Moreau DANIEL Conditions or Problems Problem Name Problem [...] day as needed for itching DIPHENHYDRAMINE HCL 29648390390 Active Jakub Ramirez MD Active LORATADINE 10 MG TABS 1 daily as needed for allergies LORATADINE 39300607376 Active Jakub Ramirez MD Active AIRBORNE ORAL CHEW 1 a day MULTIPLE VITAMINS-MINERALS 80188445569 Active Jakub Ramirez MD Active VENTOLIN HFA 108 (90 BASE) MCG/ACT AERS 2 puffs four times a day as needed for cough or wheezing ALBUTEROL SULFATE 68565271127 Active Jakub Ramirez MD Active HYDROXYZINE HCL 10 MG ORAL TABS 1 to 2 three times a day as needed for itching HYDROXYZINE HCL 45892130014 No Longer Active Leah Bassett LPN Active CLARITIN 10 MG TAB 1 tablet by mouth daily as needed for allergies LORATADINE 30867766160 Active Leah Bassett LPN Active STRATTERA 10 MG CAPS 1 daily ATOMOXETINE HCL 87701948622 No Longer Active Jakub Ramirez MD Active ANUSOL-HC 2.5 % RECTAL CREA apply twice a day to hemorrhoid as needed HYDROCORTISONE 41702309360 Active Jakub Ramirez MD Active IBUPROFEN 800 MG TABS 1 three times a day as needed for headache IBUPROFEN 03658936395 Active Jakub Ramirez MD Active HYDROCODONE-ACETAMINOPHEN 5-325 MG TABS 1 tab by mouth every 8 hours as needed for pain HYDROCODONE-ACETAMINOPHEN 69414942106 No Longer Active Jakub Ramirez MD Active AQUAPHILIC EXT OINT once daily as needed EMOLLIENT 06308210200 Active Jakub Ramirez MD Active ZADITOR 0.025 % OPHTH SOLN once or twice daily as needed KETOTIFEN FUMARATE 60762059321 Active Jakub Ramirez MD Active VYVANSE 20 MG CAPS twice daily LISDEXAMFETAMINE DIMESYLATE 36634855984 Active Jakub Ramirez MD Active XANAX 0.25 MG TABS take one as needed twice daily ALPRAZOLAM 54810095917 Active Jakub Ramirez MD Active ABILIFY 2 MG ORAL TABS once daily ARIPIPRAZOLE 33233969171 Active Jakub Ramirez MD Active AMOXICILLIN 875 MG TABS 1 tab by mouth twice daily AMOXICILLIN 23950885211 No Longer Active Rojas Turner MD Active HYDROCODONE-ACETAMINOPHEN 5-325 MG TABS 1 tab by mouth every 8 hours as needed for pain HYDROCODONE-ACETAMINOPHEN 5-325 MG TABS 549094 HYDROCODONE-ACETAMINOPHEN Inactive STRATTERA 10 MG CAPS 1 daily STRATTERA 10 MG CAPS 848277 ATOMOXETINE HCL Inactive HYDROXYZINE HCL 10 MG ORAL TABS 1 to 2 three times a day as needed for itching HYDROXYZINE HCL 10 MG ORAL TABS 315021 HYDROXYZINE HCL Inactive AMOXICILLIN 875 MG TABS 1 tab by mouth twice daily AMOXICILLIN 875 MG TABS 198010 AMOXICILLIN Inactive Vital Signs Date Name Value [...] Measured Encounters Code Encounter Date Provider Facility CPT-03506 Level 3 Est. Patient 14:46:53 CDT Jakub Ramirez MD [facility] CPT-95296 Level 3 Est. Patient 12:51:53 CDT Jakub Ramirez MD [facility] CPT-93310 Level 3 Est. Patient 16:54:18 CDT Rojas Turner MD [facility] -[facility]
[2017-01-29] MEDS ORDERED: OLANZapine 5 MG ODT (ZyPREXA ZYDIS) PO ONE (13:45)
--- NOTE | 2017-01-29 13:47 | ED Psychosocial ---
General Chief Complaint: Psych/Social Disorder Stated Complaint: ANXIETY/ADHD/HEARING VOICES Source: patient Exam Limitations: no limitations History of Present Illness Time seen by provider: 13:44 Initial Comments To ER with reports of anxiety, inability to focus and hearing voices. These are not new symptoms. This is been ongoing for quite some time but she is in the addiction treatment Center for the past few days for methamphetamine use and has been off of her Vyvanse and Xanax. She was started on Abilify yesterday. History of Bipolar disorder Timing/Duration: just prior to arrival Severity: moderate Associated Symptoms: anxiety, impaired concentration Allergies and Home Medications Allergies Coded Allergies: No Known Drug Allergies (Unverified , 01/29/17) Home Medications Albuterol Sulfate 18 Gm Hfa.aer.ad, (Reported) Alprazolam 0.25 Mg Tablet, (Reported) Aripiprazole 2 Mg Tablet, (Reported) Ibuprofen 800 Mg Tablet, (Reported) Ketotifen Fumarate 5 Ml Drops, (Reported) Lisdexamfetamine Dimesylate 20 Mg Capsule, (Reported) Loratadine 10 Mg Tablet, (Reported) Constitutional: see HPI EENTM: see HPI Respiratory: no symptoms reported Cardiovascular: no symptoms reported Genitourinary: no symptoms reported Musculoskeletal: no symptoms reported Skin: no symptoms reported Psychiatric/Neurological: See HPI, Anxiety Past Pgmhkbs-Vpqwcp-Fwikij Hx Patient Social History Recent Foreign Travel: No Contact w/Someone Who Travel: No Physical Exam Vital Signs Vital Sign - Last 12Hours 01/29/17 13:30 Temp 98.0 Pulse 100 Resp 18 B/P (MAP) 117/85 Pulse Ox 100 Capillary Refill : General Appearance: WD/WN, no apparent distress HEENT: PERRL/EOMI, normal ENT inspection Neck: non-tender, full range of motion Respiratory: no respiratory distress, no accessory muscle use Cardiovascular: regular rate, rhythm, no murmur Gastrointestinal: normal bowel sounds, non tender Extremities: normal range of motion, non-tender Neurologic/Psychiatric: alert, oriented x 3 Appearance/Memory: No denies illness, No disheveled, No impaired insight, No impaired recent memory, No impaired remote memory Behavior/Eye Contact: cooperative, increased rate of speech, other (flight of ideas) Thoughts/Hallucinations: normal thought pattern, no apparent hallucination, No grandiose, No incoherent, No obsessive, No paranoid, No persecution Skin: normal color, warm/dry Progress/Results/Core Measures Results/Orders Lab Results Laboratory Tests Test 01/29/17 13:50 01/29/17 13:55 Range/Units Urine Color YELLOW Urine Clarity CLEAR Urine pH 7 5-9 Urine Specific [place] 1.010 L 1.016-1.022 Urine Protein NEGATIVE NEGATIVE Urine Glucose (UA) NEGATIVE NEGATIVE Urine Ketones NEGATIVE NEGATIVE Urine Nitrite NEGATIVE NEGATIVE Urine Bilirubin NEGATIVE NEGATIVE Urine Urobilinogen NORMAL NORMAL MG/DL Urine Leukocyte Esterase NEGATIVE NEGATIVE Urine RBC (Auto) NEGATIVE NEGATIVE Urine RBC NONE /HPF Urine WBC 0-2 /HPF Urine Squamous Epithelial Cells 5-10 /HPF Urine Crystals NONE /LPF Urine Amorphous Sediment RARE BONNY URATES H /LPF Urine Bacteria TRACE /HPF Urine Casts NONE /LPF Urine Mucus NEGATIVE /LPF Urine Culture Indicated NO Urine Opiates Screen NEGATIVE NEGATIVE Urine Oxycodone Screen NEGATIVE NEGATIVE Urine Methadone Screen NEGATIVE NEGATIVE Urine Propoxyphene Screen NEGATIVE NEGATIVE Urine Barbiturates Screen NEGATIVE NEGATIVE Ur Tricyclic Antidepressants Screen NEGATIVE NEGATIVE Urine Phencyclidine Screen NEGATIVE NEGATIVE Urine Amphetamines Screen NEGATIVE NEGATIVE Urine Methamphetamines Screen NEGATIVE NEGATIVE Urine Benzodiazepines Screen NEGATIVE NEGATIVE Urine Cocaine Screen NEGATIVE NEGATIVE Urine Cannabinoids Screen NEGATIVE NEGATIVE White Blood Count 8.4 4.3-11.0 10^3/uL Red Blood Count 4.39 4.35-5.85 10^6/uL Hemoglobin 13.9 11.5-16.0 G/DL Hematocrit 40 35-52 % Mean Corpuscular Volume 91 80-99 FL Mean Corpuscular Hemoglobin 32 25-34 PG Mean Corpuscular Hemoglobin Concent 35 32-36 G/DL Red Cell Distribution Width 12.3 10.0-14.5 % Platelet Count 206 130-400 10^3/uL Mean Platelet Volume 10.0 7.4-10.4 FL Neutrophils (%) (Auto) 65 42-75 % Lymphocytes (%) (Auto) 28 12-44 % Monocytes (%) (Auto) 5 0-12 % Eosinophils (%) (Auto) 1 0-10 % Basophils (%) (Auto) 0 0-10 % Neutrophils # (Auto) 5.5 1.8-7.8 X 10^3 Lymphocytes # (Auto) 2.4 1.0-4.0 X 10^3 Monocytes # (Auto) 0.4 0.0-1.0 X 10^3 Eosinophils # (Auto) 0.1 0.0-0.3 10^3/uL Basophils # (Auto) 0.0 0.0-0.1 10^3/uL My Orders Orders - JEREMIAH ANDRE [employer] Olanzapine Orally Dissolve Tab (Zyprexa (01/29/17 13:45) Cbc With Automated Diff (01/29/17 13:42) Comprehensive Metabolic Panel (01/29/17 13:42) Ua Culture If Indicated (01/29/17 13:42) Drug Screen Stat (Urine) (01/29/17 13:42) Urine Bedside (01/29/17 13:42) Alcohol (01/29/17 13:42) Medications Given in ED Current Medications Medications Dose Ordered Sig/Sonny Route Start Time Stop Time Status Last Admin Dose Admin Olanzapine 5 mg ONCE ONCE PO 01/29/17 13:45 01/29/17 13:46 DC 01/29/17 13:43 5 MG Vital Signs/I&O Vital Sign - Last 12Hours 01/29/17 13:30 Temp 98.0 Pulse 100 Resp 18 B/P (MAP) 117/85 Pulse Ox 100 Departure Impression Impression: Primary Impression: Bipolar disorder Disposition: 01 HOME, SELF-CARE Condition: Stable Departure-Patient Inst. Decision time for Depature: 13:46 Referrals: NO,LOCAL PHYSICIAN (PCP/Family) Primary Care Physician Patient Instructions: NO INSTRUCTIONS GIVEN Add. Discharge Instructions: 1. Return to ER for any concerns 2. All discharge instructions reviewed with patient and/or family. Voiced understanding. Scripts Carbamazepine (Carbamazepine) 100 Mg Cpmp.12hr 100 MG PO BID, #14 CAP Prov: JEREMIAH ANDRE APRN 01/29/17 JEREMIAH ANDRE APRN Jan 29, 2017 13:47
[2017-01-29] MEDS ORDERED: IBUP-1780 (13:51)
[2017-01-29] MEDS ORDERED: KETO5DRO15 (13:51)
[2017-01-29] MEDS ORDERED: LORA10TA7 (13:51)
[2017-01-29] MEDS ORDERED: ARIP2TAB11 (13:52)
[2017-01-29] MEDS ORDERED: ALBU18HF2 (13:52)
[2017-01-29] MEDS ORDERED: NF-VYVAN20 (13:52)
[2017-01-29] MEDS ORDERED: ALPR0.254 (13:52)
[2017-01-29 14:00] LABS: BILIRUBIN,URINE NEGATIVE (NEGATIVE); KETONES,URINE NEGATIVE (NEGATIVE); LEUKOCYTE ESTERASE ,URINE NEGATIVE (NEGATIVE); NITRITE,URINE NEGATIVE (NEGATIVE); PH,URINE 7 (5-9); PROTEIN,URINE NEGATIVE (NEGATIVE); UROBILINOGEN,URINE NORMAL (NORMAL)
[2017-01-29 14:06] LABS: BASOPHILS % (AUTO) 0 % (0-10); EOSINOPHILS # (AUTO) 0.1 10^3/uL (0.0-0.3); EOSINOPHILS % (AUTO) 1 % (0-10); LYMPHOCYTES # (AUTO) 2.4 X 10^3 (1.0-4.0); LYMPHOCYTES % (AUTO) 28 % (12-44); MEAN CORPUSCULAR HEMOGLOBIN 32 PG (25-34); MEAN CORPUSCULAR HGB CONC 35 G/DL (32-36); MEAN CORPUSCULAR VOLUME 91 FL (80-99); MONOCYTES # (AUTO) 0.4 X 10^3 (0.0-1.0); MONOCYTES % (AUTO) 5 % (0-12); NEUTROPHILS # (AUTO) 5.5 X 10^3 (1.8-7.8); NEUTROPHILS % (AUTO) 65 % (42-75); PLATELET COUNT 206 10^3/uL (130-400); RED BLOOD COUNT 4.39 10^6/uL (4.35-5.85); RED CELL DISTRIBUTION WIDTH 12.3 % (10.0-14.5); WHITE BLOOD COUNT 8.4 10^3/uL (4.3-11.0)
[2017-01-29 14:10] LABS: WBC,URINE 0-2 /HPF
[2017-01-29] MEDS ORDERED: CARB100C8 PO (14:30)
[2017-01-29 14:32] LABS: ALANINE AMINOTRANSFERASE 17 U/L (0-55); ALBUMIN 4.5 GM/DL (3.2-4.5); ALCOHOL < 10 MG/DL (<10); ANION GAP 6 MMOL/L (5-14); ASPARTATE AMINO TRANSFERASE 21 U/L (5-34); BILIRUBIN,TOTAL 0.3 MG/DL (0.1-1.0); BLOOD UREA NITROGEN 11 MG/DL (7-18); BUN/CREATININE RATIO 14; CALCIUM 9.3 MG/DL (8.5-10.1); CARBON DIOXIDE 26 MMOL/L (21-32); CHLORIDE 104 MMOL/L (98-107); CREATININE SERUM 0.78 MG/DL (0.60-1.30); GFR ESTIMATED > 60; GLUCOSE 107 MG/DL (70-105); POTASSIUM 4.2 MMOL/L (3.6-5.0); SODIUM 136 MMOL/L (135-145); TOTAL PROTEIN 7.7 GM/DL (6.4-8.2)
[2017-01-29 14:46] VITALS: BP 117/85
== END 2017-01-29 14:46 | disposition home or self-care (01) ==
LOC: ER 13:27
DX: F15.10 Other stimulant abuse, uncomplicated; F31.9 Bipolar disorder, unspecified
CPT/HCPCS: 36415; 80053; 80306; 80320; 81000; 84703; 85025; 99283